=== PATIENT | male | born 1950 | race Caucasian/White ===

== ENCOUNTER → 2021-11-25 | Outpatient (CLI) | payer OTHER ==
[2021-11-25 14:08] VITALS: BP 147/87; PULSE 71; RESP 18; TEMP 98.2
--- NOTE | 2021-11-25 15:27 | P.PAINPG ---
PQRS Measure Charge Sheet Comment: HISTORY OF PRESENT ILLNESS: 71 yr old female as a referral from the [facility] in [place] presents today w severe and chronic neck pain secondary to DDD and facet arthropathy for evaluation. Pt states her pain level is currently at /10 in intensity, constant, tight/sore in character, localized in the base of his neck w radiation Pain is provoked with overhead reaching and lifting. Pain is alleviated with PT in May 2021 for 6 weeks, acupuncture at the [facility], massage therapy semi monthly, chiropractic treatments monthly, heating pad use w massager, medications (Tylenol, Baclofen), sitting and rest. PMH: OA, Prostate CA, HTN, Hyperlipidemia, GERD, Vitamin D Deficiency PSH: L Reverse Shoulder Replacement SH: No tobacco use, Occasional ETOH use, No illicit drug use. service history. Retired. FH: Non contributory All: See list Meds: See list REVIEW OF ORGAN SYSTEMS: CONSTITUTIONAL: No fevers or chills. No recent weight loss. NEUROLOGICAL: + numbness and tingling along the distal extremities. No seizure disorders or headaches. MUSCULOSKELETAL: + pain PSYCHIATRIC: Denies current depression or suicidal thoughts. Physical Examinations : Constitutional : Cooperative , not in acute distress . Neurologic : Cranial nerve II to XII intact. No focal neurological deficits. Psychiatric : alert & oriented x 3. Matching mood & appropriate affect. Judgment & insight intact. Musculoskeletal : Cervical Spine Motor strength in the deltoid and biceps: Normal right side. Normal Left side Motor strength biceps and the wrist extensors: Normal right side . Normal left side Motor strength in the triceps muscle: Normal right side. Normal left side Deep tendon reflexes: Normal at the biceps. Normal at Brachioradialis. Normal at triceps Vertebral body tenderness to deep palpation over C6, C7 Cervical facet loading test: positive bilaterally over C6-C7, C7-T1 Spurling test: positive bilaterally over BL C6-C7 Neck distraction test: positive bilaterally Bella sign: positive bilaterally Lumbar spine Motor strength lower extremities ,thigh and legs 5/5 Right side , 5/5 Left side Deep tendon reflexes : Normal Knee Jerk. Normal Ankle Jerk Vertebral body tenderness over Lumbar facet Loading Test: positive Right / positive Left Range of motion of the lumbar spine Flexion 30 degrees, extension 10 degrees Straight Leg Raise test: Left/ Right positive at degree Rosi test: positive right / positive left. Severe tenderness over the Sacroiliac joint on the Right / Left sides Gaenslen test: positive bilaterally Seated flexion test: positive bilaterally. Sacral spine : Severe tenderness over the Sacroiliac joint: right side / left side Range of motion: Flexion of the lumbar spine <60 degrees Range of motion: Extension of the lumbar spine <20 degrees Gaenslen's Test positive Raphael's Test positive Rosi test: positive right side / left side Thigh Thrust Test Sacral Thrust Test Imaging: Cervical x-ray from 10/08/21 reviewed Assessment/ Plan : Cervical DDD Recommendation of MRI without contrast of the cervical spine re: M50.30 May return to this clinic within 2-4 weeks for a reevaluation, review of imaging results, and to explore further treatment options. Risks, benefits of procedure discussed and patient verbalized understanding. Denies aspirin or anti- coagulant use or medical history of diabetes. Protocol for discontinuation/ continuation of medications trudy procedure discussed. All questions answered. I have spent greater than 30 minutes on patient care today. Dr Christianson was available by phone for the evaluation of this patient. The time was used to review the medical records including relevant urine studies and Prescription history (MAPs), review of the available imaging, evaluation and examination of the patient, coordination of care with the medical staff and if applicable referring physicians, as well as creation of the medical record Controlled Substance Measures - Controlled Substance Measures Is patient prescribed a controlled substance at discharge?: No
== END ==
LOC: PNWHC3 12:41
PROVIDERS: ATTEND Specialist
DX: M50.30 Other cervical disc degeneration, unspecified cervical region (principal); M19.90 Unspecified osteoarthritis, unspecified site; I10 Essential (primary) hypertension; E78.5 Hyperlipidemia, unspecified; K21.9 Gastro-esophageal reflux disease without esophagitis; Z79.899 Other long term (current) drug therapy
CPT/HCPCS: 99202

== ENCOUNTER → 2022-01-18 | Outpatient (CLI) | payer OTHER ==
[2022-01-18 15:20] VITALS: BP 168/91; PULSE 88; RESP 18; TEMP 98.1
--- NOTE | 2022-01-18 15:43 | P.PAINPG ---
PQRS Measure Charge Sheet Comment: A 71 yr old male with a history of severe and chronic neck pain secondary to cervical degenerative disc diseases and spondylosis with facet arthropathy without myelopathy presents today for neck pain evaluation. Pain level is currently at 4/10 in intensity, constant, localized in lower cervical spine, achy in character w shooting towards BL shoulders. Pain is provoked by staying in one position for periods of 1 hr or more. Pain is alleviated with PT within the last 8 mo, home exercise regimen, massages as needed this past summer, chiropractic treatments monthly as needed, accupuncture through the [facility], heating pad use, meds (Neurontin, Ibuprofen), repositioning and rest. Interventional pain procedures completed include DENIES Patient is currently on Neurontin, Ibuprofen. Patient denies any side effects of the medication(s), denies excessive drowsiness or sleepiness, denies suicidal ideation and reports that the current pain medication is helping to control the pain and improve activities of daily living. Patient denies any motor or sensory deficits. Patient denies any fever or night sweats, denies any change in the bowel movements or urination. Physical Examination: -Constitutional: Cooperative. Not in acute distress . - Neurologic: Cranial nerve II to XII intact. No focal neurological deficits. - Psychatric: Alert & oriented x 3. Matching mood & appropriate affect. Judgment and insight intact. - Musculoskeletal: Cervical spine: Muscle bulk/ tone/ strength in the bilateral upper extremities normal Vertebral body tenderness to palpation over C7 Spurling test positive Distraction test positive Facet loading test positive Thoracic spine Muscle bulk / tone/ strength in the bilateral paraspinal muscles normal Vertebral body tender to palpation over Facet loading test positive Lumbar spine: Motor bulk/ tone/ strength lower extremities , thigh and legs : 5/5 Deep tendon reflexes : Normal Knee Jerk. Normal Ankle Jerk . Vertebral body tenderness to palpation over Lumbar Facet Loading Test positive Straight Leg Raise: positive at 30 degrees right side/ left side Gaenslen's Test positive Sacral spine : Severe tenderness over the Sacroiliac joint: right side / left side Range of motion: Flexion of the lumbar spine <60 degrees Range of motion: Extension of the lumbar spine <20 degrees Gaenslen's Test positive Raphael's Test positive Rosi test: positive right side / left side Thigh Thrust Test Sacral Thrust Test Imaging: MRI without contrast of the cervical spine from 01/11/22 reviewed Assessment and plan: Chronic neck pain secondary to cervical degenerative disc disease , spondylosis with facet arthropathy without myelopathy Recommendation of PERNELL C7-T1. May need a series, up to 3 within a 6 mo period, for optimal pain relief. Risks, benefits of procedure discussed and pt verbalized understanding. Admits to anticoagulant use or medical history of diabetes. Protocol for discontinuation/ continuation of medications trudy procedure discussed. All patient questions answered I have spent less than 30 minutes on patient care today. Dr Christianson was av ailable by phone for the evaluation of this patient. The time was used to review the medical records including relevant urine studies and Prescription history (MAPs), review of the available imaging, evaluation and examination of the patient, coordination of care with the medical staff and if applicable referring physicians, as well as creation of the medical record PQRS Narrative: Hx Alcohol Use (MH) Yes: RARELY Home Medications: Ambulatory Orders Baclofen 10 mg PO 11/25/21 Cholecalciferol [Vitamin D3 (25 Mcg = 1000 Iu)] 1,000 unit PO 11/25/21 Gabapentin TID 11/25/21 Ibuprofen 800 mg PO Q12HR PRN 11/25/21 Losartan Potassium 100 mg PO DAILY 11/25/21 Multivitamin [Multivitamins Adult Gummies] 1 each PO DAILY 11/25/21 Omeprazole 20 mg PO DAILY 11/25/21 Saw [place] 500 mg PO DAILY 11/25/21 Simvastatin 40 mg PO DAILY 11/25/21 Terazosin HCl 10 mg PO DAILY 11/25/21 flaxseed oiL [[place]-3 Flaxseed Oil] 1,000 mg PO DAILY 11/25/21 hydroCHLOROthiazide [Hydrodiuril] 12.5 mg PO DAILY 11/25/21 Controlled Substance Measures - Controlled Substance Measures Is patient prescribed a controlled substance at discharge?: No
== END ==
LOC: PNWHC3 14:00
PROVIDERS: ATTEND Specialist
DX: M47.812 Spondylosis without myelopathy or radiculopathy, cervical region (principal); M50.30 Other cervical disc degeneration, unspecified cervical region; G89.29 Other chronic pain
CPT/HCPCS: 99211

== ENCOUNTER 2022-04-01 11:41 | Day surgery (SDC) | payer OTHER ==
[2022-03-16 11:25] VITALS: BMI 57.2
[~2022-04-01 11:41] MED LIST: LACTATED RINGERS 1,000 ML IV SCH
--- NOTE | 2022-04-01 13:19 | P.PN ---
Progress Note - Text Progress Note Date: 04/01/22 The patient was seen in the preop holding area. He is scheduled for cervical epidural steroid injection. His pain is mostly in the neck area radiating down the spine to the upper thoracic area with more pain in the arms and numbness or tingling. He has been taking ibuprofen 600 mg 3 times a day last time was at 10 PM last night and also he takes fish oil. Given the patient's age I prefer that he holds the ibuprofen for 24 hours before the procedure and that's why I'm going to reschedule this procedure for time. The issue was explained to the patient and he was agreeable to our plan.
== END 2022-04-01 13:15 | disposition home or self-care (01) ==
LOC: ORPAIN 11:41
PROVIDERS: ATTEND Anesthesiology
DX: M47.812 Spondylosis without myelopathy or radiculopathy, cervical region (principal); M54.2 Cervicalgia; Z53.09 Procedure and treatment not carried out because of other contraindication

== ENCOUNTER 2022-04-29 09:41 | Day surgery (SDC) | payer OTHER ==
[2022-04-29] MEDS ORDERED: LIDOCAINE 1% (10MG/ML) FOR IV START INTRADERMA PRN (09:51)
[2022-04-29] MEDS ORDERED: LACTATED RINGERS 1,000 ML IV SCH (09:51)
[2022-04-29 10:02] VITALS: TEMP 98.1
[2022-04-29] MEDS ORDERED: DEXAMETHASONE SOD PHOSPHATE 10 MG/ML 1 ML VIAL ONE (10:27)
[2022-04-29] MEDS ORDERED: IOPAMIDOL M200 10 ML VIAL ONE (10:27)
--- NOTE | 2022-04-29 10:40 | P.PCN ---
Date of Procedure: 04/29/22 Procedure(s) Performed: . PROCEDURE 1. Cervical epidural steroid injection under fluoroscopic guidance, C7-T1 (fluoroscopy images available in the radiology department ) 2. Cervical epidurogram. PREOPERATIVE DIAGNOSIS: 1- Cervical Degenerative Disc Diseases 2-cervical spondylosis with cervical Facet arthropathy without myelopathy.4-cervical spinal stenosis POSTOPERATIVE DIAGNOSIS: : 1- Cervical Degenerative Disc Diseases , 2-cervical spondylosis with cervical Facet arthropathy without myelopathy. 4-cervical spinal stenosis ANESTHESIA: Lidocaine 1% 3 mL only. EBL 0 PROCEDURE INDICATION: The patient with neck pain and radiculitis unresponsive to conservative treatment consents for procedure. PROCEDURE DESCRIPTION / TECHNIQUE: The patient was seen and identified in the preoperative area. Risks, benefits, complications, including but not limited to infections ,bleeding , allergic reactions to the medications ,and not complete pain releife, and alternatives were discussed with the patient, the patient agreed to proceed with the procedure and signed the consent. Patient was taken to the OR and time out was completed. The patient was placed in the prone position on the procedure table. A pillow was placed under the patients chest to increase the cervical interlaminar space. The cervical area was prepped and draped in the usual sterile fashion. Vital signs were closely monitored during the procedure. Using anterior-posterior fluoroscopy, the C7-T1 interlaminar space was identified and the skin over this site was marked and then infiltrated with 1% lidocaine subcutaneously. Subsequently, a 20-gauge 3-1/2-inch Tuohy epidural needle was inserted and advanced toward the epidural space by means of the ``hanging-drop technique and guided by AP and lateral fluoroscopy. The correct needle position in the epidural space was verified with the injection of 2 mL of the water soluble contrast dye [id number]-300 and observing an excellent epidurogram with the epidural spread of the dye, after negative aspiration for blood and CSF and in the absence of paresthesias. then, mixture containing 20 mg Dexamethasone and 2 ml of preservative-free normal saline injected and a washout of epidurogram was seen. Needle was withdrawn intact, skin was cleansed, and bandages were applied. Complications= none. Disposition= patient was placed in supine position and transferred to the recovery room area in stable condition and there was no evidence of upper or lower extremity motor or sensory deficit after the procedure patient was discharged from recovery room after discharge criteria met and home discharge instructions was given by the staff and patient will follow with the pain clinic in 2-4 weeks
--- NOTE | 2022-04-29 10:49 | FL ---
EXAMINATION TYPE: FL guided pain mgmt statistic DATE OF EXAM: 04/29/2022 CLINICAL HISTORY: Neck pain. TECHNIQUE: Fluoroscopy. COMPARISON: None. FINDINGS: Fluoroscopic guidance was provided during procedure performed by Dr. Spring. A total of 10 seconds of fluoroscopic time was utilized during the procedure and 1 spot image is acquired. Sing le image acquired shows contrast injection with localization at C7 level. IMPRESSION: As Above.
[2022-04-29 11:16] VITALS: BP 146/84; PULSE 85; RESP 16
== END 2022-04-29 11:18 | disposition home or self-care (01) ==
LOC: ORPAIN 09:41
PROVIDERS: ATTEND Specialist
DX: M50.13 Cervical disc disorder with radiculopathy, cervicothoracic region (principal); M47.22 Other spondylosis with radiculopathy, cervical region; M48.02 Spinal stenosis, cervical region
CPT/HCPCS: 62321; J1100; Q9966

== ENCOUNTER → 2022-05-17 | Outpatient (CLI) | payer OTHER ==
[2022-05-17 13:08] VITALS: BP 159/91; PULSE 81; RESP 18; TEMP 97.9
--- NOTE | 2022-05-17 14:33 | P.PAINPG ---
PQRS Measure Charge Sheet History and Exam Findings: All other causes of pain ruled out Comment: A 71 yr old female with a history of severe and chronic neck pain secondary to cervical DDD and spondylosis with facet arthropathy without myelopathy presents today for evaluation s/p PERNELL C7-T1. Pt states he experienced 100 % pain relief x 1 wk s/p procedure. Pain level is provoked at 6 /10 in intensity, constant, localized in the cervical spine, achy/ sharp/ in character w shooting towards the BL shoulders. Pain is provoked by lifting and too much neck activity. Pain is alleviated with massage therapy monthly currently for last 2 yrs, chiropractic treatments semi monthly for 1-2 yrs currently, use of a cane for a mbulatory assistance, meds (Neurontin, Tyl, Ibu, Baclofen), alternating heat & ice, repositioning and rest. Interventional pain procedures completed include PERNELL C7-T1 x1 Patient is currently on Tyl, Ibu, Baclofen, Neurontin Patient denies any side effects of the medication(s), denies excessive drowsiness or sleepiness, denies suicidal ideation and reports that the current pain medication is helping to control the pain and improve activities of daily living. Patient denies any motor or sensory deficits. Patient denies any fever or night sweats, denies any change in the bowel movements or urination. Physical Examination: -Constitutional: Cooperative. Not in acute distress . - Neurologic: Cranial nerve II to XII intact. No focal neurological deficits. - Psychatric: Alert & oriented x 3. Matching mood & appropriate affect. Judgment and insight intact. - Musculoskeletal: Cervical spine: Muscle bulk/ tone/ strength in the bilateral upper extremities normal Vertebral body tenderness to palpation over Spurling test positive Distraction test positive Facet loading test positive Thoracic spine Muscle bulk / tone/ strength in the bilateral paraspinal muscles normal Vertebral body tender to palpation over T1, T2, T3 Facet loading test positive Lumbar spine: Motor bulk/ tone/ strength lower extremities , thigh and legs : 5/5 Deep tendon reflexes : Normal Knee Jerk. Normal Ankle Jerk . Vertebral body tenderness to palpation over Lumbar Facet Loading Test positive Straight Leg Raise: positive at 30 degrees right side/ left side Gaenslen's Test positive Sacral spine : Severe tenderness over the Sacroiliac joint: right side / left side Range of motion: Flexion of the lumbar spine <60 degrees Range of motion: Extension of the lumbar spine <20 degrees Gaenslen's Test positive Rosi test: positive right side / left side Thigh Thrust Test Sacral Thrust Test Assessment and plan: Chronic neck pain secondary to cervical DDD, spondylosis with facet arthropathy without myelopathy Recommendation of Thoracic x- ray re: M51.34 May need additional testing if indicated. May follow up within 4 wks for a re evaluation. All questions answered I have spent less than 30 minutes on patient care today. Dr Christianson was available by phone for the evaluation of this patient. The time was used to review the medical records including relevant urine studies and Prescription history (MAPs), review of the available imaging, evaluation and examination of the patient, coordination of care with the medical staff and if applicable referring physicians, as well as creation of the medical record - Pain Location Bilateral Lower Neck Non-Pharmacological Interventions: Chiropractic Treatment, Heat, Ice, Massage Pharmacological Interventions: Epidural, PRN Medication, Scheduled Medication PQRS Narrative: Hx Alcohol Use (MH) Yes: RARELY Home Medications: Ambulatory Orders Baclofen 10 mg PO BID 11/25/21 Cholecalciferol [Vitamin D3 (25 Mcg = 1000 Iu)] 1,000 unit PO DAILY 11/25/21 Gabapentin 600 mg PO TID 11/25/21 Ibuprofen 800 mg PO Q12HR PRN 11/25/21 Multivitamin [Multivitamins Adult Gummies] 1 each PO DAILY 11/25/21 Omeprazole 20 mg PO DAILY 11/25/21 Saw [place] 500 mg PO DAILY 11/25/21 Simvastatin 40 mg PO HS 11/25/21 Terazosin HCl 10 mg PO HS 11/25/21 flaxseed oiL [[place]-3 Flaxseed Oil] 1,000 mg PO DAILY 11/25/21 Fluticasone Nasal [place] [Flonase Nasal [place]] 2 spray EA NOSTRIL DAILY 03/16/22 Losartan/Hydrochlorothiazide [Losartan-Hctz 100-12.5 mg Tab] 1 tab PO DAILY 03/16/22 Zinc Citrate [Zinc] 22 mg PO DAILY 03/16/22 Cetirizine HCl [Zyrtec] 1 tab PO DAILY 04/27/22 Controlled Substance Measures - Controlled Substance Measures Is patient prescribed a controlled substance at discharge?: No
== END ==
LOC: PNWHC3 12:47
PROVIDERS: ATTEND Specialist
DX: M47.812 Spondylosis without myelopathy or radiculopathy, cervical region (principal); M50.30 Other cervical disc degeneration, unspecified cervical region; G89.29 Other chronic pain
CPT/HCPCS: 99211

== ENCOUNTER → 2022-05-17 | Outpatient (CLI) | payer OTHER ==
--- NOTE | 2022-05-17 14:11 | XR ---
EXAMINATION TYPE: XR thoracic spine 2V DATE OF EXAM: 05/17/2022 CLINICAL HISTORY: Mid back pain. TECHNIQUE: Frontal, lateral, and swimmer's view of thoracic spine are obtained. COMPARISON: None. FINDINGS: Thoracic spine show S shaped scoliotic curvature without evidence of acute fracture or disl ocation. Lateral images show some straightening of the thoracic spine. Vertebral body heights and di sc space heights are preserved. There is mild to moderate multilevel anterior and lateral spurring. V isualized ribs are intact bilaterally. IMPRESSION: As above.
== END | disposition home or self-care (01) ==
LOC: RADXRMAIN 13:47
PROVIDERS: ATTEND Physician Assistant Medical
DX: M51.34 Other intervertebral disc degeneration, thoracic region (principal)
CPT/HCPCS: 72070

== ENCOUNTER → 2022-11-03 | Outpatient (CLI) | payer OTHER ==
[2022-11-03 10:24] VITALS: BP 127/85; PULSE 58; RESP 14; TEMP 98
--- NOTE | 2022-11-03 15:30 | P.PAINPG ---
PQRS Measure Charge Sheet Comment: A 71 yr old male with a history of severe and chronic mid back pain secondary to thoracic DDD and spondylosis with facet arthropathy without myelopathy presents today for mid back pain. Pain level is provoked at 6/10 in intensity, constant, localized in the thoracic spine, achy in character w shooting towards the ribs. Pain is provoked by bending, lifting. Pain is alleviated with massage therapy every 2-3 wks, chiropractic treatments semi monthly, heat, ice, medications (Ibu, Neurontin, Baclofen), reclining and rest. Oswestry axial pain score of 28. Interventional pain procedures completed include PERNELL C7-T1 Patient is currently on Ibu, Baclofen, Neurontin Patient denies any side effects of the medication(s), denies excessive drowsiness or sleepiness, denies suicidal ideation and reports that the current pain medication is helping to control the pain and improve activities of daily living. Patient denies any motor or sensory deficits. Patient denies any fever or night sweats, denies any change in the bowel movements or urination. Physical Examination: -Constitutional: Cooperative. Not in acute distress . - Neurologic: Cranial nerve II to XII intact. No focal neurological deficits. - Psychatric: Alert & oriented x 3. Matching mood & appropriate affect. Judgment and insight intact. - Musculoskeletal: Cervical spine: Muscle bulk/ tone/ strength in the bilateral upper extremities normal Vertebral body tenderness to palpation over Spurling test positive Distraction test positive Facet loading test positive Thoracic spine Muscle bulk / tone/ strength in the bilateral paraspinal muscles normal Vertebral body tender to palpation over T11 Facet loading test positive Lumbar spine: Motor bulk/ tone/ strength lower extremities , thigh and legs : 5/5 Deep tendon reflexes : Normal Knee Jerk. Normal Ankle Jerk . Vertebral body tenderness to palpation over Lumbar Facet Loading Test positive Straight Leg Raise: positive at 30 degrees right side/ left side Gaenslen's Test positive Sacral spine : Severe tenderness over the Sacroiliac joint: right side / left side Range of motion: Flexion of the lumbar spine <60 degrees Range of motion: Extension of the lumbar spine <20 degrees Gaenslen's Test positive Rosi test: positive right side / left side Thigh Thrust Test Sacral Thrust Test Imaging: Thoracic spine MRI non contrast from 10/25/22 reviewed Assessment and plan: Chronic mid back pain secondary to thoracic disc bulges, DDD, spondylosis with facet arthropathy without myelopathy Recommendation of TESI T11-T12 #1. May need a series of injections for optimal pain relief. Risks, benefits of procedure discussed and pt verbalized understanding. Protocol for discontinuation/ continuation of medications surrounding procedure discussed. All patient questions answered I have spent less than 30 minutes on patient care today. Dr Christianson was available by phone for the evaluation of this patient. The time was used to review the medical records including relevant urine studies and Prescription history (MAPs), review of the available imaging, evaluation and examination of the patient, coordination of care with the medical staff and if applicable referring physicians, as well as creation of the medical record PQRS Narrative: Hx Alcohol Use (MH) Yes: RARELY Home Medications: Ambulatory Orders Baclofen 10 mg PO BID 11/25/21 Cholecalciferol [Vitamin D3 (25 Mcg = 1000 Iu)] 1,000 unit PO DAILY 11/25/21 Gabapentin 600 mg PO TID 11/25/21 Ibuprofen 800 mg PO Q12HR PRN 11/25/21 Multivitamin [Multivitamins Adult Gummies] 1 each PO DAILY 11/25/21 Omeprazole 20 mg PO DAILY 11/25/21 Saw [place] 500 mg PO DAILY 11/25/21 Simvastatin 40 mg PO HS 11/25/21 Terazosin HCl 10 mg PO HS 11/25/21 flaxseed oiL [[place]-3 Flaxseed Oil] 1,000 mg PO DAILY 11/25/21 Fluticasone Nasal [place] [Flonase Nasal [place]] 2 spray EA NOSTRIL DAILY 03/16/22 Losartan/Hydrochlorothiazide [Losartan-Hctz 100-12.5 mg Tab] 1 tab PO DAILY 03/16/22 Zinc Citrate [Zinc] 22 mg PO DAILY 03/16/22 Cetirizine HCl [Zyrtec] 1 tab PO DAILY 04/27/22 Controlled Substance Measures - Controlled Substance Measures Is patient prescribed a controlled substance at discharge?: No
== END ==
LOC: PNWHC3 09:58
PROVIDERS: ATTEND Specialist
DX: M51.34 Other intervertebral disc degeneration, thoracic region (principal); M47.814 Spondylosis without myelopathy or radiculopathy, thoracic region; G89.29 Other chronic pain
CPT/HCPCS: 99211

== ENCOUNTER 2022-11-16 09:45 | Day surgery (SDC) | payer OTHER ==
[2022-11-11 10:20] VITALS: BMI 57.2
[2022-11-16 10:12] VITALS: TEMP 98.3
[2022-11-16] MEDS ORDERED: IOPAMIDOL M200 10 ML VIAL ONE (10:19)
[2022-11-16] MEDS ORDERED: methylPREDNISolone ACETATE 80 MG/ML 1 ML VIAL ONE (10:19)
--- NOTE | 2022-11-16 10:26 | P.PCN ---
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 POSTOPERATIVE DIAGNOSIS: Same as preop diagnosis PROCEDURE 1. Thoracic epidural steroid injection under fluoroscopic guidance at the T11-12 level. (Fluoroscopy imaging was available in radiology department) 2. Thoracic epidurogram. ANESTHESIA: Lidocaine 1% 3 and then only. EBL: Minimal PROCEDURE INDICATION: The patient with mid and low back pain and radiculitis symptoms unresponsive to conservative treatment. Fluoroscopy was used to optimize visualization of the needle placement and to maximize safety. PROCEDURE DESCRIPTION / TECHNIQUE: The patient was seen and identified in the preoperative area. Risks, benefits, complications including but not limited to infections ,bleeding ,allergic reaction to the medications ,nerve damage and not complete pain releife , and alternatives were discussed with the patient. The patient agreed to proceed with the procedure and signed the consent, and vital signs were stable. Patient was taken to the OR and time out was completed. The patient was placed in the prone position on procedure table and a pillow was placed under the abdomen to reduce lumbar lordosis. The lumbosacral area was prepped and draped in the usual sterile fashion.ere closely monitored during the procedure. Vital signs was monitered during the entire procedure. Using anterior-posterior fluoroscopy, the T11-12 interlaminar space was identified and the skin over this site was marked and then infiltrated with 1% lidocaine subcutaneously. Subsequently, a 20-gauge Tuohy epidural needle was inserted and advanced toward the epidural space using the ``Loss of resistance technique and guided by AP and lateral fluoroscopy. The correct needle position in the epidural space was verified with the injection of 2 mL of the water soluble contrast dye Isovue 200 contrast and observing an excellent epidurogram with the epidural spread of the dye, after negative aspiration for blood and CSF and in the absence of paresthesias. Again after negative aspiration, a 6 ml mixture containing 60 mg of Depo-medrol ( Preservetive Free ), and 2 ml of preservative free Normal Saline, and 2 ml of preservative free lidocaine 1% solution was injected and a washout of epidurogram was seen. Needle was withdrawn intact, skin was cleansed, and bandages were applied. COMPLICATIONS: None DISPOSITION / PLANS: The patient was placed in a supine position and transferred to the recovery area in a stable condition for observation. There was no evidence of lower extremity motor or sensory deficit after the procedure. Patient was discharged from the recovery room after meeting discharge criteria. Home discharge instructions were given to the patient by the staff. The patient was reexamined prior to discharge. The patient will schedule a follow up in the clinic in 2-4 weeks.
--- NOTE | 2022-11-16 10:41 | FL ---
Intraoperative/procedural fluoroscopic services were provided for thoracic epidural injection. Total fluoroscopy time is 4.1 seconds with a total of 1 submitted image to PACS. Total DAP [id number]. Please see the operative note for further details.
[2022-11-16 10:45] VITALS: BP 138/82; PULSE 75; RESP 18
== END 2022-11-16 10:45 | disposition home or self-care (01) ==
LOC: ORPAIN 09:45
PROVIDERS: ATTEND Specialist
DX: M51.14 Intervertebral disc disorders with radiculopathy, thoracic region (principal); M47.24 Other spondylosis with radiculopathy, thoracic region
CPT/HCPCS: 62321; J1040; Q9966

== ENCOUNTER 2022-11-24 17:36 | Observation (INO) | payer OTHER, MEDICARE ==
--- NOTE | 2022-11-24 17:53 | ED ---
General Adult HPI - General Stated complaint: SOB,PE Time Seen by Provider: 11/24/22 17:36 Source: patient, RN notes reviewed, old records reviewed - History of Present Illness Initial comments: This is a 72-year-old male presents emergency department coming from [facility]. Patient was diagnosed with a pulmonary embolism. Patient is on heparin. Patient states the symptoms started about a day ago and were getting a little bit worse we decided to go to the emergency department. Patient had a computed tomography scan that indicated a right-sided pulmonary was him and he was placed on heparin. Patient denies any chest pain palpitations or fever chills or cough. Patient denies any lightheadedness or dizziness. - Related Data Home Medications Medication Instructions Recorded Confirmed Baclofen 10 mg PO BID 11/25/21 11/24/22 Cholecalciferol [Vitamin D3 (25 50 unit PO AC-BRKFST 11/25/21 11/24/22 Mcg = 1000 Iu)] Gabapentin 600 mg PO TID 11/25/21 11/24/22 Ibuprofen 800 mg PO Q8H PRN 11/25/21 11/24/22 Multivitamin [Multivitamins Adult 1 each PO DAILY 11/25/21 11/24/22 Gummies] Omeprazole 20 mg PO AC-BRKFST 11/25/21 11/24/22 Simvastatin 40 mg PO HS 11/25/21 11/24/22 Terazosin HCl 10 mg PO HS 11/25/21 11/24/22 flaxseed oiL [[place]-3 Flaxseed Oil] 1,000 mg PO DAILY 11/25/21 11/24/22 Losartan/Hydrochlorothiazide 1 tab PO DAILY 03/16/22 11/24/22 [Losartan-Hctz 100-12.5 mg Tab] Ipratropium [place] 0.06%Nasal 2 spray EA NOSTRIL DAILY PRN 11/24/22 11/24/22 [Atrovent Nasal 0.06%] Lidocaine 5% Patch [Lidoderm] 1 patch TOPICAL DAILY PRN 11/24/22 11/24/22 Zinc Gluconate [Zinc] 50 mg PO DAILY 11/24/22 11/24/22 Allergies Allergy/AdvReac Type Severity Reaction Status Date / Time No Known Allergies Allergy Verified 11/24/22 18:17 Review of Systems ROS Statement: Those systems with pertinent positive or pertinent negative responses have been documented in the HPI. ROS Other: All systems not noted in ROS Statement are negative. Past Medical History Past Medical History: Cancer, Fibromyalgia, Hyperlipidemia, Hypertension, Prostate Disorder, Sleep Apnea/CPAP/BIPAP Additional Past Medical History / Comment(s): hx hiatal hernia, prostate cancer, frequent urination, degnerative disks, History of Any Multi-Drug Resistant Organisms: MRSA Date of last positivie culture/infection: 2014 MDRO Source:: rt hand Past Surgical History: Joint Replacement, Tonsillectomy Additional Past Surgical History / Comment(s): left shoulder replacement, sinus surgery, bryant cataracts, PAIN CLINIC PROCEDURES, COLONOSCOPY Past Anesthesia/Blood Transfusion Reactions: No Reported Reaction Smoking Status: Former smoker - Past Family History Mother Family Medical History: No Reported History General Exam - General Exam Comments Initial Comments: GENERAL: Patient is well-developed and well-nourished. Patient is nontoxic and well- hydrated and is in mild distress. ENT: Neck is soft and supple. No significant lymphadenopathy is noted. Oropharynx is clear. Moist mucous membranes. Neck has full range of motion without eliciting any pain. EYES: The sclera were anicteric and conjunctiva were pink and moist. Extraocular movements were intact and pupils were equal round and reactive to light. Eyelids were unremarkable. PULMONARY: Unlabored respirations. Good breath sounds bilaterally. No audible rales rhonchi or wheezing was noted. CARDIOVASCULAR: There is a regular rate and rhythm without any murmurs gallops or rubs. ABDOMEN: Soft and nontender with normal bowel sounds. SKIN: Skin is clear with no lesions or rashes and otherwise unremarkable. NEUROLOGIC: Patient is alert and oriented x3. Cranial nerves II through XII are grossly intact. Motor and sensory are also intact. Normal speech, volume and content. Symmetrical smile. MUSCULOSKELETAL: Normal extremities with adequate strength and full range of motion. LYMPHATICS: No significant lymphadenopathy is noted PSYCHIATRIC: Normal psychiatric evaluation. Course Vital Signs 11/24/22 11/24/22 17:42 17:49 Temperature 98.2 F Pulse Rate 110 H Respiratory 20 18 Rate Blood Pressure 121/88 O2 Sat by Pulse 96 Oximetry Medical Decision Making - Medical Decision Making EKG was and to room myself shows a sinus tachycardia at 100 bpm WV interval 272 QRS is 170 QT interval 06/18/1969 QTC is 394 per patient's EKG shows no ST segment elevation or depression. Was pt. sent in by a medical professional or institution (GENARO Adame, COSTUME DESIGN TEACHER, urgent care, hospital, or care home...) When possible be specific @ -Patient was transferred to us by [facility] Did you speak to anyone other than the patient for history (EMS, parent, family, police, friend...)? What history was obtained from this source @ -ER physician gave report about this patient Did you review nursing and triage notes (agree or disagree)? Why? @ -I reviewed and agree with nursing and triage notes Were old charts reviewed (outside hosp., previous admission, EMS record, old EKG, old radiological studies, urgent care reports/EKG's, care home records)? Report findings @ -I reviewed the CAT scan results the chart of this patient and lab work from the other facility Differential Diagnosis (chest pain, altered mental status, abdominal pain women, abdominal pain men, vaginal bleeding, weakness, fever, dyspnea, syncope, headache, dizziness, GI bleed, back pain, seizure, CVA, palpatations, mental health, musculoskeletal)? @ -Differential Dyspnea: Coronary syndrome, arrhythmia, tamponade, asthma, COPD, pulmonary embolism, pneumonia, pneumothorax, pulmonary effusion, anaphylaxis, diabetic ketoacidosis, flailed chest, pulmonary contusion, diaphragmatic rupture, anemia, neuromuscular, this is not meant to be an all-inclusive list. EKG interpreted y me (3pts min.). @ -As above X-rays interpreted by me (1pt min.). @ -None done CT interpreted by me (1pt min.). @ -None done U/S interpreted by me (1pt. min.). @ -None done What testing was considered but not performed or refused? (CT, X-rays, U/S, labs)? Why? @ -None What meds were considered but not given or refused? Why? @ -None Did you discuss the management of the patient with other professionals (izabella jonesfessionalgabriele i.e. GENARO Adame, COSTUME DESIGN TEACHER, lab, RT, psych nurse, social work specialist, offset plate maker, teacher, business banking officer, showcase trimmer)? Give summary @ I spoke with some physicians and he agreed to admit the patient Was smoking cessation discussed for >3mins.? @ -No Was critical care preformed (if so, how long)? @ -No Were there social determinants of health that impacted care today? How? (Homelessness, low income, unemployed, alcoholism, drug addiction, transportation, low edu. Level, literacy, decrease access to med. care, senior care, rehab)? @ -No Was there de-escalation of care discussed even if they declined (Discuss DNR or withdrawal of care, Hospice)? DNR status @ -No What co-morbidities impacted this encounter? (DM, HTN, Smoking, COPD, CAD, Cancer, CVA, ARF, Chemo, Hep., AIDS, mental health diagnosis, sleep apnea, morb id obesity)? @ -None Was patient admitted / discharged? Hospital course, mention meds given and route, prescriptions, significant lab abnormalities, going to OR and other pertinent info. @ -Patient will be started back on heparin patient will be admitted and cardiology be consulted Undiagnosed new problem with uncertain prognosis? @ -No Drug Therapy requiring intensive monitoring for toxicity (Heparin, Nitro, Insulin, Cardizem)? @ -No Were any procedures done? @ -No Diagnosis/symptom? @ -Pulmonary embolism Acute, or Chronic, or Acute on Chronic? @ -Acute Uncomplicated (without systemic symptoms) or Complicated (systemic symptoms)? @ -Complicated Side effects of treatment? @ -No Exacerbation, Progression, or Severe Exacerbation? @ -No Poses a threat to life or bodily function? How? (Chest pain, [place], AL, pneumonia, PE, COPD, DKA, ARF, appy, cholecystitis, CVA, Diverticulitis, Homicidal, Suicidal, threat to staff... and all critical care pts) @ -Yes this can lead to hypoxia and end organ dysfunction Disposition Clinical Impression: Pulmonary embolism Disposition: ADMITTED IP TO THIS [facility] Time of Disposition: 17:52
[2022-11-24] MEDS: HEPARIN SOD,PORK IN 0.45% NACL 25,000 UNIT in 0.45% NACL 1 250ML.BAG IV SCH (18:25)
[2022-11-24] MEDS ORDERED: NITROGLYCERIN SL TABS 0.4 MG TAB SUBLINGUAL PRN (18:41)
[2022-11-24] MEDS ORDERED: LIDOCAINE 5% PATCH TOPICAL PRN (18:49)
[2022-11-24] MEDS ORDERED: IPRATROPIUM BROMIDE 0.06% NASAL SPRAY (15 ML) EA NOSTRIL PRN (18:49)
[2022-11-24] MEDS ORDERED: HEPARIN SODIUM 1,000 UN/ML (10ML VL) IV PRN (18:53)
--- NOTE | 2022-11-24 18:59 | P.HPIM ---
History of Present Illness H&P Date: 11/24/22 Patient is a 72-year-old male with a past medical history of hypertension, hyperlipidemia, GERD, BPH, LUISANA and morbid obesity who is a transfer from [facility] for a pulmonary embolism. Patient states that over the past 24 hours he's been having shortness of breath with exertion. CTA chest at the outside hospital showed right-sided pulmonary embolism with no right heart strain. Patient was satting in the low 90s at rest on room air. He was tachycardic. Patient will be admitted for an echocardiogram to rule out right heart strain. Patient will also need a home O2 test prior to discharge. Review of systems: 10 ROS reviewed and are negative except as noted in HPI Physical exam General: [Alert and oriented, well nourished, no acute distress]. Eye: [PERRL, EOMI, normal conjunctiva]. HENT: [Normocephalic, clear tympanic membranes, normal hearing, moist oral mucosa, no scleral icterus, no sinus tenderness]. Neck: [Supple, non-tender, no carotid bruits, no JVD, no lymphadenopathy]. Lungs: [Clear to auscultation and percussion, non-labored respiration]. Heart: [Tachycardic, regular rhythm, no murmur, gallop or edema]. Abdomen: [Soft, non-tender, non-distended, normal bowel sounds, no masses, morbidly obese]. Musculoskeletal: [Normal range of motion and strength, no tenderness or swelling]. Skin: [Skin is warm, dry and pink, no rashes or lesions]. Neurologic: [Awake, alert, and oriented X3, CN II-XII intact]. Psychiatric: [Cooperative, appropriate mood and affect]. Assessment and plan Acute pulmonary embolism Hypertension Hyperlipidemia GERD BPH Morbid obesity We'll resume heparin drip at 2300 units an hour and trend PTT every 6 hours as per pharmacy We'll obtain a echocardiogram If echocardiogram negative for right heart strain will plan to discharge the patient on Xarelto which is more effective in obese patients. Trend troponin Resume all other home medications which include: Baclofen 10 mg by mouth twice a day, gabapentin 600 mg by mouth 3 times a day, losartan 100 mg by mouth daily, hydrochlorothiazide 12.5 mg by mouth daily, PPI, simvastatin 40 mg by mouth at bedtime, terazosin 10 mg by mouth at bedtime We'll also order for CPAP at nighttime CODE STATUS:full code DVT prophylaxis: Heparin drip Discussed with: Patient, ER, rn Anticipated length of stay < than [address]: home Past Medical History Past Medical History: Cancer, Fibromyalgia, Hyperlipidemia, Hypertension, Prostate Disorder, Sleep Apnea/CPAP/BIPAP Additional Past Medical History / Comment(s): hx hiatal hernia, prostate cancer, frequent urination, degnerative disks, History of Any Multi-Drug Resistant Organisms: MRSA Date of last positivie culture/infection: 2014 MDRO Source:: rt hand Past Surgical History: Joint Replacement, Tonsillectomy Additional Past Surgical History / Comment(s): left shoulder replacement, sinus surgery, bryant cataracts, PAIN CLINIC PROCEDURES, COLONOSCOPY Past Anesthesia/Blood Transfusion Reactions: No Reported Reaction Smoking Status: Former smoker - Past Family History Mother Family Medical History: No Reported History Medications and Allergies Home Medications Medication Instructions Recorded Confirmed Type Baclofen 10 mg PO BID 11/25/21 11/24/22 History Cholecalciferol [Vitamin D3 (25 50 unit PO AC-BRKFST 11/25/21 11/24/22 History Mcg = 1000 Iu)] Gabapentin 600 mg PO TID 11/25/21 11/24/22 History Ibuprofen 800 mg PO Q8H PRN 11/25/21 11/24/22 History Multivitamin [Multivitamins Adult 1 each PO DAILY 11/25/21 11/24/22 History Gummies] Omeprazole 20 mg PO AC-BRKFST 11/25/21 11/24/22 History Simvastatin 40 mg PO HS 11/25/21 11/24/22 History Terazosin HCl 10 mg PO HS 11/25/21 11/24/22 History flaxseed oiL [[place]-3 Flaxseed Oil] 1,000 mg PO DAILY 11/25/21 11/24/22 History Losartan/Hydrochlorothiazide 1 tab PO DAILY 03/16/22 11/24/22 History [Losartan-Hctz 100-12.5 mg Tab] Ipratropium [place] 0.06%Nasal 2 spray EA NOSTRIL DAILY PRN 11/24/22 11/24/22 History [Atrovent Nasal 0.06%] Lidocaine 5% Patch [Lidoderm] 1 patch TOPICAL DAILY PRN 11/24/22 11/24/22 History Zinc Gluconate [Zinc] 50 mg PO DAILY 11/24/22 11/24/22 History Allergies Allergy/AdvReac Type Severity Reaction Status Date / Time No Known Allergies Allergy Verified 11/24/22 18:17 Physical Exam Osteopathic Statement: *. No significant issues noted on an osteopathic structural exam other than those noted in the History and Physical/Consult. Vitals: Vital Signs Temp Pulse Resp BP Pulse Ox 11/24/22 17:49 18 11/24/22 17:42 98.2 F 110 H 20 121/88 96 Intake and Output 11/24/22 11/24/22 11/24/22 06:59 14:59 22:59 Other: Weight 163.293 kg
[2022-11-24] MEDS: BACLOFEN 10 MG TAB PO SCH (20:46)
[2022-11-24] MEDS: GABAPENTIN 300 MG CAP PO SCH (20:46)
[2022-11-24] MEDS ORDERED: ATORVASTATIN 20 MG TAB PO SCH (21:00)
[2022-11-24] MEDS ORDERED: DOXAZOSIN 4 MG TAB PO SCH (21:00)
[2022-11-25] MEDS: HEPARIN SOD,PORK IN 0.45% NACL 25,000 UNIT in 0.45% NACL 1 250ML.BAG IV SCH (05:19)
[2022-11-25] MEDS ORDERED: CHOLECALCIFEROL 25 MCG (1000 IU) TABLET PO SCH (07:30)
[2022-11-25] MEDS ORDERED: PANTOPRAZOLE 40 MG TABLET PO SCH (07:30)
[2022-11-25] MEDS: GABAPENTIN 300 MG CAP PO SCH ×2 (08:23→16:27)
[2022-11-25] MEDS: BACLOFEN 10 MG TAB PO SCH (08:23)
[2022-11-25 08:34] LABS: Basophils % (A) 0 %; Eosinophils # (A) 0.4 k/uL (0-0.7); Eosinophils % (A) 4 %; HCT 47.7 % (39.0-53.0); HGB 15.4 gm/dL (13.0-17.5); Lymphocytes # (A) 1.2 k/uL (1.0-4.8); Lymphocytes % (A) 13 %; MCH 29.7 pg (25.0-35.0); MCHC 32.3 g/dL (31.0-37.0); MCV 91.9 fL (80.0-100.0); Mean Platelet Volume 8.7; Monocytes # (A) 0.6 k/uL (0-1.0); Monocytes % (A) 6 %; Neutrophils # (A) 7.2 k/uL (1.3-7.7); Neutrophils % (A) 75 %; Platelet Count 139 k/uL (150-450); RDW 14.9 % (11.5-15.5); WBC 9.5 k/uL (3.8-10.6)
[2022-11-25] MEDS ORDERED: ASPIRIN 325 MG TAB PO SCH (09:00)
[2022-11-25] MEDS ORDERED: MULTIVITAMINS, THERA 1 EACH TAB PO SCH (09:00)
[2022-11-25] MEDS ORDERED: hydroCHLOROthiazide 12.5 MG CAP PO SCH (09:00)
[2022-11-25] MEDS ORDERED: LOSARTAN 50 MG TAB PO SCH (09:00)
[2022-11-25 09:13] LABS: African American GFR (CKD) >90 (>60 ml/min/1.73 sqM); Anion Gap 9 mmol/L; Blood Urea Nitrogen 18 mg/dL (9-20); Calcium 8.6 mg/dL (8.4-10.2); Carbon Dioxide 25 mmol/L (22-30); Chloride 105 mmol/L (98-107); Glucose 143 mg/dL (74-99); Non-African American GFR(CKD) >90 (>60 ml/min/1.73 sqM); Potassium 3.7 mmol/L (3.5-5.1); Sodium 139 mmol/L (137-145)
[2022-11-25 11:00] LABS: Chol/HDL Ratio 2.32 Ratio; LDL Cholesterol,Calculated 63.8 mg/dL (0.0-131.0); VLDL Calculation 11.38 mg/dL (5.00-40.00)
[2022-11-25 11:13] VITALS: PULSE 82; RESP 16
--- NOTE | 2022-11-25 13:15 | CA ---
Transthoracic Echo Report Name: Torsten Doherty Age: 72 Gender: M : 1950 Exam Date: 11/25/2022 08:31 Exam Location: [facility] Ht (in): 66 Wt (lb): 360 Ordering Physician: Josette Haque MD Attending/Referring Phys: Hotel Desk Clerk Nikko Pacheco Procedure CPT: Indications: PE and rule out right heart strain Cardiac Hx: Technical Quality: Very technically difficult study Contrast 1: Lumason Total Dose (mL): 5 Contrast 2: Total Dose (mL): MEASUREMENTS (Male / Female) Normal Values 2D ECHO LV Diastolic Diameter PLAX 4.1 cm 4.2 - 5.9 / 3.9 - 5.3 cm LV Systolic Diameter PLAX 3.1 cm IVS Diastolic Thickness 1.4 cm 0.6 - 1.0 / 0.6 - 0.9 cm LVPW Diastolic Thickness 1.8 cm 0.6 - 1.0 / 0.6 - 0.9 cm LV Relative Wall Thickness 0.8 RV Internal Dim ED PLAX 3.7 cm LVOT Diameter 2.3 cm Aortic Root Diameter 3.3 cm LV Diastolic Volume MOD BP 56.5 cm??? 67 - 155 / 56 - 104 cm??? LV Systolic Volume MOD BP 23.4 cm??? 22 - 58 / 19 - 49 cm??? LV Ejection Fraction MOD BP 58.7 % >= 55 % LV Cardiac Index MOD BP 996.3 cm???/min???m??? LV Diastolic Volume MOD 4C 51.3 cm??? LV Systolic Volume MOD 4C 34.1 cm??? LV Ejection Fraction MOD 4C 33.4 % LV Cardiac Index MOD 4C 514.5 cm???/min???m??? LV Diastolic Length 4C 7.3 cm LV Systolic Length 4C 6.7 cm LV Diastolic Volume MOD 2C 60.8 cm??? LV Systolic Volume MOD 2C 15.4 cm??? LV Ejection Fraction MOD 2C 74.7 % LV Cardiac Index MOD 2C 1363.3 cm???/min???m??? LV Diastolic Length 2C 7.5 cm LV Systolic Length 2C 6.4 cm LA Volume 46.3 cm??? 18 - 58 / 22 - 52 cm??? DOPPLER AV Peak Velocity 161.6 cm/s AV Peak Gradient 10.5 mmHg LVOT Peak Velocity 109.7 cm/s LVOT Peak Gradient 4.8 mmHg AV Area Cont Eq pk 2.8 cm??? MV Peak Velocity 96.8 cm/s MV Peak Gradient 3.7 mmHg MV Mean Velocity 49.5 cm/s MV Mean Gradient 1.1 mmHg MV Velocity Time Integral 22.6 cm MR Peak Velocity 122.9 cm/s MR Peak Gradient 6.0 mmHg Mitral E Point Velocity 56.5 cm/s Mitral A Point Velocity 70.4 cm/s Mitral E to A Ratio 0.8 MV Deceleration Time 253.2 ms MV E' Velocity 9.6 cm/s Mitral E to MV E' Ratio 5.9 TR Peak Velocity 231.2 cm/s TR Peak Gradient 21.4 mmHg Right Ventricular Systolic Press 31.4 mmHg PV Peak Velocity 106.0 cm/s PV Peak Gradient 4.5 mmHg FINDINGS Left Ventricle Normal LVsize. Normal wall thickness. Left ventricular ejection fraction is estimated at 55-60 %. No obvious regional wall motion abnormality on contrast imaging. No evidence of LV thrombus. Grade 1 diastolic dysfunction Right Ventricle Normal right ventricular size. Right Atrium Normal right atrial size. Left Atrium Normal left atrial size. Mitral Valve Mitral valve not well visualized. Mild MR. Aortic Valve Aortic valve not well visualized. No aortic valve stenosis or regurgitation. Tricuspid Valve Tricuspid valve not well visualized. Trace TR. Pulmonic Valve Pulmonic valve not well visualized. No pulmonic regurgitation. Pericardium Not well visualized. Aorta Normal size aortic root . CONCLUSIONS Limited views.Very technically difficult study Normal LV size and wall thickness. Normal LV systolic function. LVEF estimated at 55% No obvious regional wall motion abnormality Grade 1 diastolic dysfunction No major valvular pathology No prior echo to compare with Previewed by: Dr Neville Murillo (Electronically Signed) Final Date: 25 November 2022 13:14
--- NOTE | 2022-11-25 15:17 | P.DS ---
Providers Date of admission: 11/24/22 18:49 Expected date of discharge: 11/25/22 Attending physician: Josette Haque MD Primary care physician: [facility] Course: Acute pulmonary embolism Hypertension Hyperlipidemia GERD BPH Morbid obesity Patient is a 72-year-old male with a past medical history of hypertension, hyperlipidemia, GERD, BPH, LUISANA and morbid obesity who is a transfer from [facility] for a pulmonary embolism. On arrival patient was afebrile, 121/88, heart rate 110, 96% on 3 L nasal cannula. CBC was unremarkable. Basic metabolic panel is unremarkable. Troponin was 0.048 and 0.046. Lipid panel is unremarkable. Patient was started on a heparin drip. Echocardiogram was done which did not show any evidence of right heart strain, did show good ejection fraction and no wall motion abnormality. Patient was subsequently cleared for discharge home. He was prescribed xarelto on discharge. He should follow-up with his primary care physician. I spent 35 minutes coordinating this discharge on 11/25 Gen: awake, alert HEENT: normocephalic, atraumatic, good hearing acuity, moist mucous membranes Resp: good air exchange, breathing comfortably with no accessory muscle use CVS: good distal perfusion x 4, GI: soft, NTTP, ND : no SPT, no CVAT, weller catheter not present MSK: no pitting edema, no clubbing Neuro: non-focal, moving all extremities Psych: cooperative, euthymic mood Patient Condition at Discharge: Good Plan - Discharge Summary New Discharge Prescriptions: New Rivaroxaban [Xarelto] 20 mg PO DAILY #30 tab Rivaroxaban [Xarelto] 15 mg PO BID #42 tab Continue Terazosin HCl 10 mg PO HS flaxseed oiL [[place]-3 Flaxseed Oil] 1,000 mg PO DAILY Losartan/Hydrochlorothiazide [Losartan-Hctz 100-12.5 mg Tab] 1 tab PO DAILY Ipratropium [place] 0.06%Nasal [Atrovent Nasal 0.06%] 2 spray EA NOSTRIL DAILY PRN PRN Reason: Allergy Symptoms Gabapentin 600 mg PO TID Simvastatin 40 mg PO HS Omeprazole 20 mg PO AC-BRKFST Multivitamin [Multivitamins Adult Gummies] 1 each PO DAILY Cholecalciferol [Vitamin D3 (25 Mcg = 1000 Iu)] 50 unit PO AC-BRKFST Baclofen 10 mg PO BID Lidocaine 5% Patch [Lidoderm 5% Patch] 1 patch TOPICAL DAILY PRN PRN Reason: Pain Zinc Gluconate [Zinc] 50 mg PO DAILY Discontinued Ibuprofen 800 mg PO Q8H PRN PRN Reason: Pain Discharge Medication List Baclofen 10 mg PO BID 11/25/21 [History] Cholecalciferol [Vitamin D3 (25 Mcg = 1000 Iu)] 50 unit PO AC-BRKFST 11/25/21 [History] Gabapentin 600 mg PO TID 11/25/21 [History] Multivitamin [Multivitamins Adult Gummies] 1 each PO DAILY 11/25/21 [History] Omeprazole 20 mg PO AC-BRKFST 11/25/21 [History] Simvastatin 40 mg PO HS 11/25/21 [History] Terazosin HCl 10 mg PO HS 11/25/21 [History] flaxseed oiL [[place]-3 Flaxseed Oil] 1,000 mg PO DAILY 11/25/21 [History] Losartan/Hydrochlorothiazide [Losartan-Hctz 100-12.5 mg Tab] 1 tab PO DAILY 03/16/22 [History] Ipratropium [place] 0.06%Nasal [Atrovent Nasal 0.06%] 2 spray EA NOSTRIL DAILY PRN 11/24/22 [History] Lidocaine 5% Patch [Lidoderm 5% Patch] 1 patch TOPICAL DAILY PRN 11/24/22 [History] Zinc Gluconate [Zinc] 50 mg PO DAILY 11/24/22 [History] Rivaroxaban [Xarelto] 15 mg PO BID #42 tab 11/25/22 [Rx] Rivaroxaban [Xarelto] 20 mg PO DAILY #30 tab 11/25/22 [Rx] Follow up Appointment(s)/Referral(s): Hanane May PAC [REFERRING] - 1-2 days Discharge Disposition: HOME SELF-CARE
[2022-11-25 15:25] VITALS: BP 150/77; TEMP 98
[2022-11-25] MEDS ORDERED: APIXABAN 5 MG TAB PO STA (16:16)
== END 2022-11-25 17:52 | disposition home or self-care (01) ==
LOC: EC 17:36 → 3SCARD 18:49
PROVIDERS: ADMIT Internal Medicine; ATTEND Internal Medicine
DX: I26.99 Other pulmonary embolism without acute cor pulmonale (principal); I10 Essential (primary) hypertension; E78.5 Hyperlipidemia, unspecified; G47.33 Obstructive sleep apnea (adult) (pediatric); M79.7 Fibromyalgia; N40.0 Benign prostatic hyperplasia without lower urinary tract symptoms; K44.9 Diaphragmatic hernia without obstruction or gangrene; K21.9 Gastro-esophageal reflux disease without esophagitis; E66.01 Morbid (severe) obesity due to excess calories; Z68.43 Body mass index [BMI] 50.0-59.9, adult; Z79.899 Other long term (current) drug therapy; Z96.612 Presence of left artificial shoulder joint; Z86.14 Personal history of Methicillin resistant Staphylococcus aureus infection; Z85.46 Personal history of malignant neoplasm of prostate; Z98.42 Cataract extraction status, left eye; Z98.41 Cataract extraction status, right eye
CPT/HCPCS: 96366 ×3; 96365; 99285; 94760 ×2; 93005; 93306; 80061; 80048; 84484 ×2; 85025; 85730; G0378 ×2; Q9950; J1644 ×2

== ENCOUNTER → 2022-12-08 | Outpatient (CLI) | payer OTHER ==
[2022-12-08 12:39] VITALS: BP 134/92; PULSE 81; RESP 15; TEMP 98.3
--- NOTE | 2022-12-08 15:16 | P.PAINPG ---
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 Pt states he experienced 90% pain relief x 3 wks s/p procedure. Pain level is provoked at 2/10 in intensity, constant, localized in the thoracic spine, achy in character w shooting towards the ribs. Pain is provoked by bending, lifting. Pain is alleviated with massage therapy every 2-3 wks, chiropractic treatments semi monthly, heat, ice, medications (Ibu, Neurontin, Baclofen), reclining and rest. Interventional pain procedures completed include PERNELL C7-T1, T11-T12 x1 Patient is currently on Ibu, Baclofen, Neurontin Patient denies any side effects of the medication(s), denies excessive drowsiness or sleepiness, denies suicidal ideation and reports that the current pain medication is helping to control the pain and improve activities of daily living. Patient denies any motor or sensory deficits. Patient denies any fever or night sweats, denies any change in the bowel movements or urination. Physical Examination: -Constitutional: Cooperative. Not in acute distress . - Neurologic: Cranial nerve II to XII intact. No focal neurological deficits. - Psychatric: Alert & oriented x 3. Matching mood & appropriate affect. Judgment and insight intact. - Musculoskeletal: Cervical spine: Muscle bulk/ tone/ strength in the bilateral upper extremities normal Vertebral body tenderness to palpation over Spurling test positive Distraction test positive Facet loading test positive Thoracic spine Muscle bulk / tone/ strength in the bilateral paraspinal muscles normal Vertebral body tender to palpation Facet loading test positive Lumbar spine: Motor bulk/ tone/ strength lower extremities , thigh and legs : 5/5 Deep tendon reflexes : Normal Knee Jerk. Normal Ankle Jerk . Vertebral body tenderness to palpation over Lumbar Facet Loading Test positive Straight Leg Raise: positive at 30 degrees right side/ left side Gaenslen's Test positive Sacral spine : Severe tenderness over the Sacroiliac joint: right side / left side Range of motion: Flexion of the lumbar spine <60 degrees Range of motion: Extension of the lumbar spine <20 degrees Gaenslen's Test positive Rosi test: positive right side / left side Thigh Thrust Test Sacral Thrust Test Imaging: Thoracic spine MRI non contrast from 10/25/22 reviewed Assessment and plan: Chronic mid back pain secondary to thoracic disc bulges, DDD, spondylosis with facet arthropathy without myelopathy Will manage residual pain at home and may return to clinic on an as needed basis. All patient questions answered I have spent less than 30 minutes on patient care today. Dr Christianson was available by phone for the evaluation of this patient. The time was used to review the medical records including relevant urine studies and Prescription history (MAPs), review of the available imaging, evaluation and examination of the patient, coordination of care with the medical staff and if applicable referring physicians, as well as creation of the medical record PQRS Narrative: Hx Alcohol Use (MH) Yes: RARELY Home Medications: Ambulatory Orders Baclofen 10 mg PO BID 11/25/21 Cholecalciferol [Vitamin D3 (25 Mcg = 1000 Iu)] 50 unit PO AC-BRKFST 11/25/21 Gabapentin 600 mg PO TID 11/25/21 Multivitamin [Multivitamins Adult Gummies] 1 each PO DAILY 11/25/21 Omeprazole 20 mg PO AC-BRKFST 11/25/21 Simvastatin 40 mg PO HS 11/25/21 Terazosin HCl 10 mg PO HS 11/25/21 flaxseed oiL [[place]-3 Flaxseed Oil] 1,000 mg PO DAILY 11/25/21 Losartan/Hydrochlorothiazide [Losartan-Hctz 100-12.5 mg Tab] 1 tab PO DAILY 03/16/22 Ipratropium [place] 0.06%Nasal [Atrovent Nasal 0.06%] 2 spray EA NOSTRIL DAILY PRN 11/24/22 Lidocaine 5% Patch [Lidoderm 5% Patch] 1 patch TOPICAL DAILY PRN 11/24/22 Zinc Gluconate [Zinc] 50 mg PO DAILY 11/24/22 Apixaban [Eliquis] 5 mg PO BID #60 tablet 11/25/22 Apixaban [Eliquis] 10 mg PO BID #28 tab 11/25/22 Controlled Substance Measures - Controlled Substance Measures Is patient prescribed a controlled substance at discharge?: No
== END ==
LOC: PNWHC3 12:17
PROVIDERS: ATTEND Specialist
DX: M51.34 Other intervertebral disc degeneration, thoracic region (principal); M47.814 Spondylosis without myelopathy or radiculopathy, thoracic region; G89.29 Other chronic pain
CPT/HCPCS: 99211

== ENCOUNTER → 2023-03-21 | Outpatient (CLI) | payer OTHER ==
[2023-03-21 13:58] VITALS: BP 150/84; PULSE 95; RESP 16; TEMP 97.9
--- NOTE | 2023-03-21 14:43 | P.PAINPG ---
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 Pain level is provoked at 8/10 in intensity, constant, localized in the thoracic spine, predominantly axial, achy in characte r w occasional shooting towards the ribs. Pain is provoked by bending, lifting. Pain is alleviated with PT weekly x 2 wks which he is currently in, massage therapy every 2-3 wks which he is currently in, chiropractic treatments semi monthly for years which he is currently in, heat, ice, medications, reclining and rest. Oswestry axial pain score of 17. Interventional pain procedures completed include PERNELL C7-T1, T11-T12 x1 Patient is currently on Ibu, Baclofen, Neurontin Patient denies any side effects of the medication(s), denies excessive drowsiness or sleepiness, denies suicidal ideation and reports that the current pain medication is helping to control the pain and improve activities of daily living. Patient denies any motor or sensory deficits. Patient denies any fever or night sweats, denies any change in the bowel movements or urination. Physical Examination: -Constitutional: Cooperative. Not in acute distress . - Neurologic: Cranial nerve II to XII intact. No focal neurological deficits. - Psychatric: Alert & oriented x 3. Matching mood & appropriate affect. Judgment and insight intact. - Musculoskeletal: Cervical spine: Muscle bulk/ tone/ strength in the bilateral upper extremities normal Vertebral body tenderness to palpation over Spurling test positive Distraction test positive Facet loading test positive Thoracic spine Muscle bulk / tone/ strength in the bilateral paraspinal muscles normal Vertebral body tender to palpation over T2 Facet loading test positive Lumbar spine: Motor bulk/ tone/ strength lower extremities , thigh and legs : 5/5 Deep tendon reflexes : Normal Knee Jerk. Normal Ankle Jerk . Vertebral body tenderness to palpation over Lumbar Facet Loading Test positive Straight Leg Raise: positive at 30 degrees right side/ left side Gaenslen's Test positive Sacral spine : Severe tenderness over the Sacroiliac joint: right side / left side Range of motion: Flexion of the lumbar spine <60 degrees Range of motion: Extension of the lumbar spine <20 degrees Gaenslen's Test positive Rosi test: positive right side / left side Thigh Thrust Test Sacral Thrust Test Imaging: Thoracic spine MRI non contrast from 7/10/23 reviewed Lumbar spine MRI non contrast from 10/08/21 reviewed Assessment and plan: Chronic mid back pain secondary to thoracic disc bulges, DDD, spondylosis with facet arthropathy without myelopathy Recommendation of PERNELL T2-T3 #2. May need a series of injections for optimal pain relief. Risks, benefits of procedure discussed and patient verbalized understanding. Protocol for discontinuation/continuation of medications surrounding procedure discussed. MRI Lumbar spine M51.36 ordered. All patient questions answered I have spent less than 30 minutes on patient care today. Dr Christianson was available by phone for the evaluation of this patient. The time was used to review the medical records including relevant urine studies and Prescription history (MAPs), review of the available imaging, evaluation and examination of the patient, coordination of care with the medical staff and if applicable referring physicians, as well as creation of the medical record PQRS Narrative: Hx Alcohol Use (MH) Yes: RARELY Home Medications: Ambulatory Orders Baclofen 10 mg PO BID 11/25/21 Cholecalciferol [Vitamin D3 (25 Mcg = 1000 Iu)] 50 unit PO AC-BRKFST 11/25/21 Gabapentin 600 mg PO TID 11/25/21 Multivitamin [Multivitamins Adult Gummies] 1 each PO DAILY 11/25/21 Omeprazole 20 mg PO AC-BRKFST 11/25/21 Simvastatin 40 mg PO HS 11/25/21 Terazosin HCl 10 mg PO HS 11/25/21 flaxseed oiL [[place]-3 Flaxseed Oil] 1,000 mg PO DAILY 11/25/21 Losartan/Hydrochlorothiazide [Losartan-Hctz 100-12.5 mg Tab] 1 tab PO DAILY 03/16/22 Ipratropium [place] 0.06%Nasal [Atrovent Nasal 0.06%] 2 spray EA NOSTRIL DAILY PRN 11/24/22 L.idocaine 5% Patch [Lidoderm 5% Patch] 1 patch TOPICAL DAILY PRN 11/24/22 Zinc Gluconate [Zinc] 50 mg PO DAILY 11/24/22 Apixaban [Eliquis] 5 mg PO BID #60 tablet 11/25/22 Apixaban [Eliquis] 10 mg PO BID #28 tab 11/25/22 Controlled Substance Measures - Controlled Substance Measures Is patient prescribed a controlled substance at discharge?: No
== END ==
LOC: PNWHC3 13:06
PROVIDERS: ATTEND Specialist
DX: S24.119A Complete lesion at unspecified level of thoracic spinal cord, initial encounter (principal); G89.29 Other chronic pain; M51.34 Other intervertebral disc degeneration, thoracic region; M47.814 Spondylosis without myelopathy or radiculopathy, thoracic region
CPT/HCPCS: 99211

== ENCOUNTER 2023-04-12 12:13 | Day surgery (SDC) | payer OTHER ==
[2023-04-12 12:40] VITALS: RESP 18; TEMP 97.8
[2023-04-12] MEDS ORDERED: IOPAMIDOL M200 10 ML VIAL ONE (13:20)
[2023-04-12] MEDS ORDERED: ROPIVACAINE 5MG/ML 20ML VIAL ONE (13:20)
[2023-04-12] MEDS ORDERED: methylPREDNISolone ACETATE 80 MG/ML 1 ML VIAL ONE (13:20)
--- NOTE | 2023-04-12 13:50 | P.PCN ---
Description of Procedure: PREOPERATIVE DIAGNOSIS: 1- thoracic Degenerative Disc Diseases 2-thoracic spondylosis with Facet arthropathy without myelopathy. Thoracic spinal stenosis POSTOPERATIVE DIAGNOSIS: As above. PROCEDURE Injection of radio contrast material into T3-4 interspace, interpretation of epidurogram, injection of steroid at T3-4epidural space under fluoroscopic guidance. ANESTHESIA: Lidocaine 1% subcutaneously. In OR continuous pulse ox, EKG, blood pressure and verbal communication was maintained with the patient. EBL: Minimal PROCEDURE INDICATION: Before the procedure were discussed with the patient detailed procedure, alternatives, complications including infection, bleeding, nerve damage, paralysis all of which could be permanent. Patient understands and all questions were answered. PROCEDURE DESCRIPTION : After getting consent, patient in OR in prone position. Back was prepped with chlorhexidine and draped in sterile fashion. After injecting 10 mL of 1% lidocaine subcutaneously, a 20-gauge Tuohy needle was introduced at T3-4 interspace with loss of resistance technique using a syringe filled with air. N egative CSF, negative blood, negative paresthesia. Needle position was confirmed with AP and lateral view of the fluoroscope. After repeat negative aspiration 2 mL of Omnipaque 200 water soluble contrast was injected. Contrast was noted in the epidural space. No contrast was noted into intrathecal or intravascular space. After repeat negative aspiration 6 mL solution was injected intermittently which consists of 5 mL of preservative-free normal saline mixed with 1 mL of 80 mg Depo-Medrol. Needle was withdrawn intact. Skin was cleansed and Band-Aids was applied. DISPOSITION / PLANS: The patient tolerated the procedure well. No complication. The patient was placed in a supine position and transferred to the recovery area in a stable condition for observation. There was no evidence of lower extremity motor or sensory deficit after the procedure. Patient was discharged from the recovery room after meeting discharge criteria. Home discharge instructions were given to the patient by the staff. The patient was reexamined prior to discharge. The patient will schedule a follow up in the clinic in 2-4 weeks.
[2023-04-12] MEDS ORDERED: LACTATED RINGERS 1,000 ML IV SCH (14:02)
[2023-04-12 14:13] VITALS: BP 117/81
[2023-04-12 14:36] VITALS: PULSE 74
--- NOTE | 2023-04-12 14:45 | FL ---
EXAMINATION TYPE: FL guided pain mgmt statistic Intraoperative/procedural fluoroscopic services were provided. Total fluoroscopy time is 55.6 seconds with a total of 2 submitted images to PACS. Please s ee the operative/procedural note for further details. DAP: [id number] mGym2
== END 2023-04-12 14:20 | disposition home or self-care (01) ==
LOC: ORPAIN 12:13
PROVIDERS: ATTEND Pain Medicine Interventional Pain Medicine
DX: M51.34 Other intervertebral disc degeneration, thoracic region (principal); M47.814 Spondylosis without myelopathy or radiculopathy, thoracic region; M48.04 Spinal stenosis, thoracic region; Z79.01 Long term (current) use of anticoagulants
CPT/HCPCS: 62321; J1040; Q9966; J2795

== ENCOUNTER → 2023-05-11 | Outpatient (CLI) | payer OTHER ==
--- NOTE | 2023-05-11 12:56 | P.PAINPG ---
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 Pt states he experienced 50 % pain relief x 4 days s/p procedure. Pain level is provoked at 7/10 in intensit y, constant, localized in the thoracic spine, predominantly axial, sharp in character w occasional shooting down the spine. Pain is provoked by driving. Pain is alleviated with PT weekly x 8 wks which ended in Apr 2023, massage therapy every 2-3 wks which he is currently in, chiropractic treatments semi monthly for years which he is currently in, heat, ice, medications, reclining and rest. Oswestry axial pain score of 16. Interventional pain procedures completed include PERNELL C7-T1, T11-T12 x1. PERNELL T3- T4 x1 Patient is currently on Ibu, Baclofen, Neurontin Patient denies any side effects of the medication(s), denies excessive drowsiness or sleepiness, denies suicidal ideation and reports that the current pain medication is helping to control the pain and improve activities of daily living. Patient denies any motor or sensory deficits. Patient denies any fever or night sweats, denies any change in the bowel movements or urination. Physical Examination: -Constitutional: Cooperative. Not in acute distress . - Neurologic: Cranial nerve II to XII intact. No focal neurological deficits. - Psychatric: Alert & oriented x 3. Matching mood & appropriate affect. Judgment and insight intact. - Musculoskeletal: Cervical spine: Muscle bulk/ tone/ strength in the bilateral upper extremities normal Vertebral body tenderness to palpation over Spurling test positive Distraction test positive Facet loading test positive Thoracic spine Muscle bulk / tone/ strength in the bilateral paraspinal muscles normal Vertebral body tender to palpation Taut bands w twitch response over BL T1-T10 Facet loading test positive Lumbar spine: Motor bulk/ tone/ strength lower extremities , thigh and legs : 5/5 Deep tendon reflexes : Normal Knee Jerk. Normal Ankle Jerk . Vertebral body tenderness to palpation over Lumbar Facet Loading Test positive Straight Leg Raise: positive at 30 degrees right side/ left side Gaenslen's Test positive Sacral spine : Severe tenderness over the Sacroiliac joint: right side / left side Range of motion: Flexion of the lumbar spine <60 degrees Range of motion: Extension of the lumbar spine <20 degrees Gaenslen's Test positive Rosi test: positive right side / left side Thigh Thrust Test Sacral Thrust Test Imaging: Thoracic spine MRI non contrast from 10/25/22 reviewed Lumbar spine MRI non contrast from 10/08/21 reviewed Assessment and plan: Chronic mid back pain secondary to thoracic disc bulges, DDD, spondylosis with facet arthropathy without myelopathy Recommendation of BL TPIs T1-T10 #1. May need a series of injections for optimal pain relief. Risks, benefits of procedure discussed and patient verbalized understanding. Protocol for discontinuation/continuation of medications surrounding procedure discussed. All patient questions answered I have spent less than 30 minutes on patient care today. Dr Christianson was available by phone for the evaluation of this patient. The time was used to review the medical records including relevant urine studies and Prescription history (MAPs), review of the available imaging, evaluation and examination of the patient, coordination of care with the medical staff and if applicable referring physicians, as well as creation of the medical record PQRS Narrative: Hx Alcohol Use (MH) Yes: RARELY Home Medications: Ambulatory Orders Baclofen 10 mg PO BID 11/25/21 Cholecalciferol [Vitamin D3 (25 Mcg = 1000 Iu)] 50 unit PO AC-BRKFST 11/25/21 Gabapentin 600 mg PO BID 11/25/21 Multivitamin [Multivitamins Adult Gummies] 1 each PO DAILY 11/25/21 Omeprazole 20 mg PO AC-BRKFST 11/25/21 Simvastatin 40 mg PO HS 11/25/21 Terazosin HCl 10 mg PO HS 11/25/21 Losartan/Hydrochlorothiazide [Losartan-Hctz 100-12.5 mg Tab] 1 tab PO DAILY 03/16/22 Lidocaine 5% Patch [Lidoderm 5% Patch] 1 patch TOPICAL DAILY PRN 11/24/22 Zinc Gluconate [Zinc] 50 mg PO DAILY 11/24/22 Apixaban [Eliquis] 5 mg PO BID #60 tablet 11/25/22 Controlled Substance Measures - Controlled Substance Measures Is patient prescribed a controlled substance at discharge?: No
[2023-05-11 13:17] VITALS: BP 126/82; PULSE 87; RESP 16
== END ==
LOC: PNWHC3 12:22
PROVIDERS: ATTEND Specialist
DX: M51.24 Other intervertebral disc displacement, thoracic region (principal); M47.814 Spondylosis without myelopathy or radiculopathy, thoracic region; G89.29 Other chronic pain
CPT/HCPCS: 99211

== ENCOUNTER 2023-05-24 11:00 | Day surgery (SDC) | payer OTHER ==
[2023-05-24] MEDS ORDERED: methylPREDNISolone ACETATE 40 MG/ML 1 ML VIAL ONE (11:31)
[2023-05-24] MEDS ORDERED: ROPIVACAINE 5MG/ML 20ML VIAL ONE (11:31)
[2023-05-24 11:35] VITALS: RESP 16
--- NOTE | 2023-05-24 11:37 | P.PCN ---
Date of Procedure: 05/24/23 Description of Procedure: Procedure: Bilateral trigger point injection between T1 and T10 Preoperative Diagnosis: myofascial pain syndrome Postoperative diagnosis: Same Anesthesia: Local EBL 0 Surgeon: Reji Shipley MD Indications for procedure: Patient with myofascial pain and palpable trigger points in the above mentioned muscles. The patient consents for an injection after an explanation of risks including but not limited to bleeding and infection, benefits, and alternatives and the patient has signed a consent form indicating understanding of all of them. Description of procedure: After informed consent was obtained the patient's painful area was sterilely prepped in the usual fashion with ChloraPrep. The trigger points were identified via palpation and the muscles were marked sterilely. Each trigger point was injected with a 25-gauge one and a half inch needle. At that point a solution consisting of 18 ml of 0.5% ropivacaine with 40mg of depomedrol was distributed evenly over the trigger points. The patient's vital signs were stable afterwards and the procedure was tolerated well. Patient was discharged home with follow-up instructions. It was explained to the patient that these injections are not curative but may help with the current symptoms. In order to strengthen the muscles involved, there needs to be dedicated exercise routine to strengthen the muscles and avoid significant muscle spasms..
[2023-05-24 12:34] VITALS: BP 142/75; PULSE 87
== END 2023-05-24 12:13 | disposition home or self-care (01) ==
LOC: ORPAIN 11:00
PROVIDERS: ATTEND Hospitalist
DX: M79.18 Myalgia, other site (principal); Z79.01 Long term (current) use of anticoagulants
CPT/HCPCS: 20553; J1030; J2795

== ENCOUNTER → 2023-06-30 | Outpatient (CLI) | payer OTHER ==
--- NOTE | 2023-06-30 12:52 | P.PAINPG ---
PQRS Measure Charge Sheet Comment: A 72 yr old male with a history of severe and chronic LBP > 10 yrs secondary to DDD and spondylosis with facet arthropathy without myelopathy presents today for evaluation s/p BL TPIs T1-T10 #1. Pt states he experienced 50 % pain relief x 5 wks s/p procedure. Pain level is provoked at 5 /10 in intensity, constant, localized in the lumbar spine, predominantly axial, sharp in character w occasional shooting down the LEs. Pain is provoked by driving. Pain is alleviated with PT weekly x 8 wks which ended in Apr 2023, massage therapy every 2-3 wks which he is currently in, chiropractic treatments semi monthly for years which he is currently in, heat, ice, medications, reclining and rest. Oswestry axial pain score of 15. Interventional pain procedures completed include PERNELL C7-T1, T11-T12 x1, PERNELL T3- T4 x1, BL TPIs T1-T10 x1 Patient is currently on Ibu, Baclofen, Neurontin Patient denies any side effects of the medication(s), denies excessive drowsiness or sleepiness, denies suicidal ideation and reports that the current pain medication is helping to control the pain and improve activities of daily living. Patient denies any motor or sensory deficits. Patient denies any fever or night sweats, denies any change in the bowel movements or urination. Physical Examination: -Constitutional: Cooperative. Not in acute distress . - Neurologic: Cranial nerve II to XII intact. No focal neurological deficits. - Psychatric: Alert & oriented x 3. Matching mood & appropriate affect. Judgment and insight intact. - Musculoskeletal: Cervical spine: Muscle bulk/ tone/ strength in the bilateral upper extremities normal Vertebral body tenderness to palpation over Spurling test positive Distraction test positive Facet loading test positive Thoracic spine Muscle bulk / tone/ strength in the bilateral paraspinal muscles normal Vertebral body tender to palpation Taut bands w twitch response Facet loading test positive Lumbar spine: Motor bulk/ tone/ strength lower extremities , thigh and legs : 5/5 Deep tendon reflexes : Normal Knee Jerk. Normal Ankle Jerk . Vertebral body tenderness to palpation over L5 Lumbar Facet Loading Test positive Straight Leg Raise: positive at 30 degrees right side/ left side Gaenslen's Test positive Sacral spine : Severe tenderness over the Sacroiliac joint: right side / left side Range of motion: Flexion of the lumbar spine <60 degrees Range of motion: Extension of the lumbar spine <20 degrees Gaenslen's Test positive Rosi test: positive right side / left side Thigh Thrust Test Sacral Thrust Test Imaging: Thoracic spine MRI non contrast from 10/25/22 reviewed Lumbar spine MRI non contrast from 10/08/21 reviewed Assessment and plan: Chronic LBP secondary to disc bulges, DDD, spondylosis with facet arthropathy without myelopathy Recommendation of lumbar x ray May need additional testing if clinically indicated. All patient questions answered I have spent less than 30 minutes on patient care today. Dr Christianson was available by phone for the evaluation of this patient. The time was used to review the medical records including relevant urine studies and Prescription history (MAPs), review of the available imaging, evaluation and examination of the patient, coordination of care with the medical staff and if applicable referring physicians, as well as creation of the medical record PQRS Narrative: Hx Alcohol Use (MH) Yes: RARELY Home Medications: Ambulatory Orders Baclofen 10 mg PO BID 11/25/21 Cholecalciferol [Vitamin D3 (25 Mcg = 1000 Iu)] 50 unit PO AC-BRKFST 11/25/21 Gabapentin 600 mg PO BID 11/25/21 Multivitamin [Multivitamins Adult Gummies] 1 each PO QAM 11/25/21 Omeprazole 20 mg PO AC-BRKFST 11/25/21 Simvastatin 40 mg PO HS 11/25/21 Terazosin HCl 10 mg PO HS 11/25/21 Losartan/Hydrochlorothiazide [Losartan-Hctz 100-12.5 mg Tab] 1 tab PO QAM 03/16/22 Lidocaine 5% Patch [Lidoderm 5% Patch] 1 patch TOPICAL DAILY PRN 11/24/22 Zinc Gluconate [Zinc] 50 mg PO QAM 11/24/22 Apixaban [Eliquis] 5 mg PO BID #60 tablet 11/25/22 Controlled Substance Measures - Controlled Substance Measures Is patient prescribed a controlled substance at discharge?: No
[2023-06-30 13:29] VITALS: BP 138/89; PULSE 77; RESP 15; TEMP 98.4
--- NOTE | 2023-07-01 16:06 | XR ---
EXAMINATION TYPE: XR lumbar spine 3V DATE OF EXAM: 06/30/2023 Comparison: None Clinical History: 72-year-old male M51.36 OTHER INTERVERTEBRAL DISC DEGENERATION, LUMBAR REGION Findings: Dextroconvex curvature centered at the upper lumbar spine. 5 lumbar type vertebral bodies. Baastrup's disease. Moderate multilevel degenerative disc disease. Vertebral body heights are preserved. Some s traightening of the normal lumbar lordosis. Alignment is preserved. Impression: 1. Moderate multilevel degenerative disc disease along with hypertrophic facet arthropathy, severe in the lower lumbar spine. 2. Baastrup's disease. 3. No vertebral compression collapse or malalignment.
== END ==
LOC: PNWHC3 12:20
PROVIDERS: ATTEND Specialist
DX: M51.35 Other intervertebral disc degeneration, thoracolumbar region (principal); M47.815 Spondylosis without myelopathy or radiculopathy, thoracolumbar region; G89.29 Other chronic pain; M51.25 Other intervertebral disc displacement, thoracolumbar region; Z79.01 Long term (current) use of anticoagulants
CPT/HCPCS: 72100; 99211

== ENCOUNTER → 2023-08-10 | Outpatient (CLI) | payer OTHER ==
[2023-08-10 13:11] VITALS: BP 125/83; PULSE 78; RESP 16; TEMP 97.7
--- NOTE | 2023-08-10 14:36 | P.PAINPG ---
PQRS Measure Charge Sheet Comment: A 72 yr old male with a history of severe and chronic LBP > 10 yrs secondary to DDD and spondylosis with facet arthropathy without myelopathy presents today for evaluation. Pain level is provoked at 6 /10 in intensity, constant, localized in the lumbar spine, predominantly axial, sharp in character w occasional shooting down the back of the LLE. Pain is provoked by driving. Pain is alleviated with PT weekly x 8 wks which ended in Apr 2023, massage therapy every 2-3 wks which he is currently in, chiropractic treatments semi monthly for years which he is currently in, heat, ice, medications, reclining and rest. Oswestry axial pain score of 16. Interventional pain procedures completed include PERNELL C7-T1, T11-T12 x1, PERNELL T3- T4 x1, BL TPIs T1-T10 x1 Patient is currently on Ibu, Baclofen, Neurontin Patient denies any side effects of the medication(s), denies excessive drowsiness or sleepiness, denies suicidal ideation and reports that the current pain medication is helping to control the pain and improve activities of daily living. Patient denies any motor or sensory deficits. Patient denies any fever or night sweats, denies any change in the bowel movements or urination. Physical Examination: -Constitutional: Cooperative. Not in acute distress . - Neurologic: Cranial nerve II to XII intact. No focal neurological deficits. - Psychatric: Alert & oriented x 3. Matching mood & appropriate affect. Judgment and insight intact. - Musculoskeletal: Cervical spine: Muscle bulk/ tone/ strength in the bilateral upper extremities normal Vertebral body tenderness to palpation over Spurling test positive Distraction test positive Facet loading test positive Thoracic spine Muscle bulk / tone/ strength in the bilateral paraspinal muscles normal Vertebral body tender to palpation Taut bands w twitch response Facet loading test positive Lumbar spine: Motor bulk/ tone/ strength lower extremities , thigh and legs : 5/5 Deep tendon reflexes : Normal Knee Jerk. Normal Ankle Jerk . Vertebral body tenderness to palpation over L3 Hood test +L L L3-L4 Lumbar Facet Loading Test positive Straight Leg Raise: positive at 30 degrees right side/ left side Gaenslen's Test positive Sacral spine : Severe tenderness over the Sacroiliac joint: right side / left side Range of motion: Flexion of the lumbar spine <60 degrees Range of motion: Extension of the lumbar spine <20 degrees Gaenslen's Test positive Rosi test: positive right side / left side Thigh Thrust Test Sacral Thrust Test Imaging: Thoracic spine MRI non contrast from 10/25/22 reviewed Lumbar spine MRI non contrast from 07/29/23 reviewed Assessment and plan: Chronic LBP secondary to disc bulges, DDD, spondylosis with facet arthropathy without myelopathy Recommendation of PERNELL L3-L4 #1. May need a series of injections for optimal pain relief. Risk, benefits of procedure discussed and patient verbalized understanding. Protocol for discontinuation/continuation of medication surrounding procedure discussed. All patient questions answered I have spent less than 30 minutes on patient care today. Dr Christianson was available by phone for the evaluation of this patient. The time was used to review the medical records including relevant urine studies and Prescription history (MAPs), review of the available imaging, evaluation and examination of the patient, coordination of care with the medical staff and if applicable referring physicians, as well as creation of the medical record PQRS Narrative: Hx Alcohol Use (MH) Yes: RARELY Home Medications: Ambulatory Orders Baclofen 10 mg PO BID 11/25/21 Cholecalciferol [Vitamin D3 (25 Mcg = 1000 Iu)] 50 unit PO AC-BRKFST 11/25/21 Gabapentin 600 mg PO BID 11/25/21 Multivitamin [Multivitamins Adult Gummies] 1 each PO QAM 11/25/21 Omeprazole 20 mg PO AC-BRKFST 11/25/21 Simvastatin 40 mg PO HS 11/25/21 Terazosin HCl 10 mg PO HS 11/25/21 Losartan/Hydrochlorothiazide [Losartan-Hctz 100-12.5 mg Tab] 1 tab PO QAM 03/16/22 Lidocaine 5% Patch [Lidoderm 5% Patch] 1 patch TOPICAL DAILY PRN 11/24/22 Zinc Gluconate [Zinc] 50 mg PO QAM 11/24/22 Apixaban [Eliquis] 5 mg PO BID #60 tablet 11/25/22 Controlled Substance Measures - Controlled Substance Measures Is patient prescribed a controlled substance at discharge?: No
== END ==
LOC: PNWHC3 12:42
PROVIDERS: ATTEND Specialist
DX: M51.36 Other intervertebral disc degeneration, lumbar region (principal); M47.816 Spondylosis without myelopathy or radiculopathy, lumbar region; G89.29 Other chronic pain
CPT/HCPCS: 99211

== ENCOUNTER 2023-08-23 11:58 | Day surgery (SDC) | payer OTHER ==
[2023-08-18 15:59] VITALS: BMI 59.3
[2023-08-23] MEDS ORDERED: ROPIVACAINE 5MG/ML 20ML VIAL ONE (12:28)
[2023-08-23] MEDS ORDERED: methylPREDNISolone ACETATE 40 MG/ML 1 ML VIAL ONE (12:28)
[2023-08-23] MEDS ORDERED: IOPAMIDOL M200 10 ML VIAL ONE (12:28)
--- NOTE | 2023-08-23 12:40 | P.PCN ---
Date of Procedure: 08/23/23 Surgeon: Reuben Chavez Pathology: none sent Condition: stable Disposition: PACU Description of Procedure: PREOPERATIVE DIAGNOSIS: 1-Lumbar radiculopathy 2- Lumber Degenerative Disc Diseases. POSTOPERATIVE DIAGNOSIS: 1-Lumbar radiculopathy. 2-Lumbar Degenerative Disc Diseases PROCEDURE 1. Lumbar epidural steroid injection under fluoroscopic guidance at the L3-4 level in the left paramedian approach. 2. Lumbar epidurogram. ANESTHESIA: Local only with 1% lidocaine EBL: Minimal PROCEDURE INDICATION: The patient with low back pain and radiculitis symptoms unresponsive to conservative treatment. Fluoroscopy was used to optimize visualization of the needle placement and to maximize safety. PROCEDURE DESCRIPTION / TECHNIQUE: The patient was seen and identified in the preoperative area. Risks, benefits, complications including but not limited to infections ,bleeding ,allergic reaction to the medications ,nerve damage and not complete pain relief , and alternatives were discussed with the patient. The patient agreed to proceed with the procedure and signed the consent. IV was started, and vital signs were stable. Patient was taken to the OR and time out was completed. The patient was placed in the prone position on procedure table and a pillow was placed under the abdomen to reduce lumbar lordosis. The lumbosacral area was prepped and draped in the usual sterile fashion with ChloraPrep.Patient was closely monitored during the procedure. Conscious sedation was used during the procedure to decrease patients anxiety. Vital signs were monitered during the entire pro cedure. Using anterior-posterior fluoroscopy, the L3-4 interlaminar space was identified and the skin over this site was marked and then infiltrated with 1% lidocaine subcutaneously. Subsequently, a 18-gauge 6"Tuohy epidural needle was inserted and advanced toward the epidural space using the Loss of resistance to air technique and guided by AP and lateral fluoroscopy. The correct needle position in the epidural space was verified with the injection of 1 mL of the water soluble contrast dye Omnipaque 180 contrast and observing an excellent epidurogram with the epidural spread of the dye, after negative aspiration for blood and CSF and in the absence of paresthesias. Again after negative aspiration, a 8 ml mixture containing 40 mg of Depo Medrol and 5 ml of preservative free Normal Saline, and 2 ml of preservative free Ropivacaine 0.5% solution was injected and a washout of epidurogram was seen. Needle was withdrawn intact, skin was cleansed, and bandages were applied. patient geovany rated procedure well and was transferred to PACU in stable condition.A copy of the needle placement picture was saved to the fluoroscopy machine. COMPLICATIONS: None DISPOSITION / PLANS: The patient was placed in a supine position and transferred to the recovery area in a stable condition for observation. There was no evidence of lower extremity motor or sensory deficit after the procedure. Hramony fields was discharged from the recovery room after meeting discharge criteria. Home discharge instructions were given to the patient by the staff. The patient was reexamined prior to discharge. The patient will schedule a follow up in the clinic in 2-4 weeks.
[2023-08-23 12:55] VITALS: RESP 16; TEMP 97.6
[2023-08-23 13:41] VITALS: BP 133/69; PULSE 82
--- NOTE | 2023-08-23 14:34 | FL ---
EXAMINATION TYPE: FL guided pain mgmt statistic Intraoperative/procedural fluoroscopic services were provided. Total fluoroscopy time is 13.3 seconds with a total of 2 submitted images to PACS. Please s ee the operative/procedural note for further details. DAP: [id number] mGym2
== END 2023-08-23 13:15 | disposition home or self-care (01) ==
LOC: ORPAIN 11:58
PROVIDERS: ATTEND Anesthesiology
DX: M51.16 Intervertebral disc disorders with radiculopathy, lumbar region (principal); Z79.01 Long term (current) use of anticoagulants; Z79.899 Other long term (current) drug therapy
CPT/HCPCS: 62323; Q9966; J2795; J1010

== ENCOUNTER → 2023-09-21 | Outpatient (CLI) | payer OTHER ==
[2023-09-21 13:27] VITALS: BP 166/75; PULSE 79; RESP 16
--- NOTE | 2023-09-21 15:19 | P.PAINPG ---
PQRS Measure Charge Sheet Comment: A 72 yr old male with a history of severe and chronic LBP > 10 yrs secondary to DDD and spondylosis with facet arthropathy without myelopathy presents today for evaluation s/p L paramedian L3-L4 #1. Pt states he experienced 50 % pain relief x 4 wks s/p procedure. Pain level is provoked at 7 /10 in intensity, constant, localized in the lumbar spine, predominantly axial, sharp in character w occasional shooting towards the L hip. Pain is provoked by standing from a sitting position. Pain is alleviated with PT weekly x 8 wks which ended in Apr 2023, massage therapy every 2-3 wks which he is currently in, chiropractic treatments semi monthly for years w his last visit August 2023, heat, ice, medications, use of a cane for ambulatory assistance, reclining and rest. Oswestry axial pain score of 16. Interventional pain procedures completed include PERNELL C7-T1, T11-T12 x1, PERNELL T3- T4 x1, BL TPIs T1-T10 x1, PERNELL L3-L4 x1 (Jul 2023) Patient is currently on Ibu, Baclofen, Neurontin Patient denies any side effects of the medication(s), denies excessive drowsiness or sleepiness, denies suicidal ideation and reports that the current pain medication is helping to control the pain and improve activities of daily living. Patient denies any motor or sensory deficits. Patient denies any fever or night sweats, denies any change in the bowel movements or urination. Physical Examination: -Constitutional: Cooperative. Not in acute distress . - Neurologic: Cranial nerve II to XII intact. No focal neurological defi cits. - Psychatric: Alert & oriented x 3. Matching mood & appropriate affect. Judgment and insight intact. - Musculoskeletal: Cervical spine: Muscle bulk/ tone/ strength in the bilateral upper extremities normal Vertebral body tenderness to palpation over Spurling test positive Distraction test positive Facet loading test positive Thoracic spine Muscle bulk / tone/ strength in the bilateral paraspinal muscles normal Vertebral body tender to palpation Taut bands w twitch response Facet loading test positive Lumbar spine: Motor bulk/ tone/ strength lower extremities , thigh and legs : 5/5 Deep tendon reflexes : Normal Knee Jerk. Normal Ankle Jerk . Vertebral body tenderness to palpation over L3 Hood test +L L L3-L4 Lumbar Facet Loading Test positive L L4-L5, L5-S1 Straight Leg Raise: positive at 30 degrees right side/ left side Gaenslen's Test positive Sacral spine : Severe tenderness over the Sacroiliac joint: right side / left side Range of motion: Flexion of the lumbar spine <60 degrees Range of motion: Extension of the lumbar spine <20 degrees Gaenslen's Test positive Rosi test: positive right side / left side Thigh Thrust Test Sacral Thrust Test Imaging: Thoracic spine MRI non contrast from 10/25/22 reviewed Lumbar spine MRI non contrast from 07/29/23 reviewed Assessment and plan: Chronic LBP secondary to disc bulges, DDD, spondylosis with facet arthropathy without myelopathy Recommendation of L MBB L3-L5#1. May need a series of injections, up until RFA, for optimal pain relief. Risk, benefits of procedure discussed and patient verbalized understanding. Protocol for discontinuation/continuation of medication surrounding procedure discussed. Minimal anesthesia, including Fentanyl and Versed, if clinicallly indicated. Recommendation of medication management. [place] 7.5/325mg #90 w 1 RF. Use, side effects, adverse reactions, safe storage discussed. Opiate/ narcotic agreement signed 09/21/23. All patient questions answered I have spent less than 30 minutes on patient care today. Dr Christianson was available by phone for the evaluation of this patient. The time was used to review the medical records including relevant urine studies and Prescription history (MAPs), review of the available imaging, evaluation and examination of the patient, coordination of care with the medical staff and if applicable referring physicians, as well as creation of the medical record PQRS Narrative: Hx Alcohol Use (MH) Yes: RARELY Home Medications: Ambulatory Orders Baclofen 10 mg PO BID 11/25/21 Cholecalciferol [Vitamin D3 (25 Mcg = 1000 Iu)] 50 mcg PO AC-BRKFST 11/25/21 Gabapentin 600 mg PO DAILY 11/25/21 Multivitamin [Multivitamins Adult Gummies] 1 each PO QAM 11/25/21 Omeprazole 20 mg PO AC-BRKFST 11/25/21 Simvastatin 40 mg PO HS 11/25/21 Terazosin HCl 10 mg PO HS 11/25/21 Losartan/Hydrochlorothiazide [Losartan-Hctz 100-12.5 mg Tab] 1 tab PO QAM 03/16/22 Lidocaine 5% Patch [Lidoderm 5% Patch] 1 patch TOPICAL DAILY PRN 11/24/22 Zinc Gluconate [Zinc] 50 mg PO QAM 11/24/22 Apixaban [Eliquis] 5 mg PO BID #60 tablet 11/25/22 HYDROcodone/APAP 7.5-325MG [[place] 7.5-325] 1 tab PO TID PRN 30 Days #90 tab 09/21/23 HYDROcodone/APAP 7.5-325MG [[place] 7.5-325] 1 tab PO TID PRN 30 Days #90 tab Controlled Substance Measures - Controlled Substance Measures Is patient prescribed a controlled substance at discharge?: Yes When asked, does pt state using other controlled substances?: No If prescribed controlled substance>3 days was MAPS reviewed?: Yes If Rx opioid, was Start Talking consent form obtained?: Yes Was information provided regarding opioid addiction?: Yes
== END ==
LOC: PNWHC3 12:12
PROVIDERS: ATTEND Specialist
DX: M47.817 Spondylosis without myelopathy or radiculopathy, lumbosacral region (principal); M51.37 Other intervertebral disc degeneration, lumbosacral region; M51.27 Other intervertebral disc displacement, lumbosacral region
CPT/HCPCS: 99211

== ENCOUNTER 2023-10-06 12:20 | Day surgery (SDC) | payer OTHER ==
[2023-10-06] MEDS: IV FLUID CONTINUATION 1,000 ML IV ONE (13:32)
[2023-10-06 13:46] VITALS: TEMP 98.3
[2023-10-06] MEDS ORDERED: MIDAZOLAM 2 MG/2 ML VIAL ONE (14:12)
[2023-10-06] MEDS ORDERED: ROPIVACAINE 5MG/ML 20ML VIAL ONE (14:12)
[2023-10-06] MEDS: IV FLUID CONTINUATION 850 ML IV ONE (14:34)
[2023-10-06 14:37] VITALS: RESP 20
--- NOTE | 2023-10-06 14:37 | P.PCN ---
Description of Procedure: Preprocedure diagnosis. 1. Lumbar spondylosis with facet joint arthropathy without myelopathy. 2. Lumbar degenerative disc disease. Postprocedure diagnosis. As above. Procedure done. Left diagnostic block with local anesthetics at L3, L4, L5 medial branch to target the facet joint L4- 5 and L5-S1 with fluoroscopic guidance (fluoroscopy images are available in the radiology department) . Anesthesia. As per anesthesia department/ Moderate sedation with intravenous Versed 2 mg and fentanyl and local infiltration with local anesthetics. In OR, continuous pulse ox, EKG, blood pressure and verbal communication was maintained. Blood loss. Minimal. Indication. The patient has low back pain secondary to lumbar facet joint arthropathy. Discussed the procedure and alternative and complications which includes infection, bleeding, nerve damage, paralysis ,aggravation of pain. Patient understands and all questions were answered. Patient iunderstands that if any pain relief occurs it will last for a few hours to a few days maximum. Procedure description. After getting consent patient was taken in the OR in prone position. Back prepped with chlorhexidine and draped in sterile fashion. After injecting 5 mL of plain 1% lidocaine subcutaneously, a 22-gauge Long spinal needle was introduced under tunnel vision of the fluoroscope at the junction of the superior articular process with left ala of the sacrum. With slight oblique fluoroscope, after injecting 5 mL of plain 1% lidocaine subcutaneously, a 22-gauge spinal needle was introduced under tunnel vision of the fluoroscope at the junction of the superior articular process with left L5 transverse process, junction of the superior articular process with the left L4 transverse process. Negative CSF, negative blood, negative paresthesia. After needle position confirmation by AP and crosstable lateral view, after negative aspiration, half milliliters of solution were injected at each point. Total 1- 1/2 mL of solution was injected on the left side which consists of 0.5% ropivacaine. Spinal needles were taken out and bandages were applied. Disposition. Patient tolerated the procedure well. No complication. Discharged home in stable condition
[2023-10-06 15:09] VITALS: BP 115/73; PULSE 79
--- NOTE | 2023-10-06 19:53 | FL ---
Fluoroscopy INDICATION: Pain FINDINGS: Fluoroscopy time: 34.3 seconds. Total dose area product (DAP) in uGy*m?, mGy*cm? (or similar): 0.4495 Images obtained: 4. IMPRESSION: 1. Documentation of fluoroscopy.
== END 2023-10-06 15:10 | disposition home or self-care (01) ==
LOC: ORPAIN 12:20
PROVIDERS: ATTEND Pain Medicine Interventional Pain Medicine
DX: M47.816 Spondylosis without myelopathy or radiculopathy, lumbar region (principal); M51.36 Other intervertebral disc degeneration, lumbar region; Z79.899 Other long term (current) drug therapy; Z79.01 Long term (current) use of anticoagulants
CPT/HCPCS: 64493; 64494; J2250; J2795; 99152

== ENCOUNTER → 2023-11-14 | Outpatient (CLI) | payer OTHER ==
[2023-11-14 12:42] VITALS: BP 145/84; PULSE 80; RESP 16
--- NOTE | 2023-11-14 14:48 | P.PAINPG ---
PQRS Measure Charge Sheet Comment: A 72 yr old male with a history of severe and chronic LBP > 10 yrs secondary to DDD and spondylosis with facet arthropathy without myelopathy presents today for evaluation s/p L MBB L4-L5/ L5-S1#1. Pt states he experienced 80 % pain relief x 1 day s/p procedure. Pain level is provoked at 6 /10 in intensity, constant, localized in the lumbar spine, predominantly axial, stiff in character w occasional shooting pain L & R of midline. Pain is provoked by standing from a sitting position. Pain is alleviated with PT weekly x 8 wks which ended in Apr 2023, massage therapy every 2-3 wks which he is currently in, chiropractic treatments semi monthly for years w his last visit August 2023, heat, ice, medications, use of a cane for ambulatory assistance, reclining and rest. Oswestry axial pain score of 16. Interventional pain procedures completed include PERNELL C7-T1, T11-T12 x1, PERNELL T3- T4 x1, BL TPIs T1-T10 x1, PERNELL L3-L4 x1 (Jul 2023), L MBB L4-L5/ L5-S1 x1 Patient is currently on [place] (dislikes it), Ibu, Baclofen, Neurontin Patient denies any side effects of the medication(s), denies excessive drowsiness or sleepiness, denies suicidal ideation and reports that the current pain medication is helping to control the pain and improve activities of daily living. Patient denies any motor or sensory deficits. Patient denies any fever or night sweats, denies any change in the bowel movements or urination. Physical Examination: -Constitutional: Cooperative. Not in acute distress . - Neurologic: Cranial nerve II to XII intact. No focal neurological deficits. - Psychatric: Alert & oriented x 3. Matching mood & appropriate affect. Judgment and insight intact. - Musculoskeletal: Cervical spine: Muscle bulk/ tone/ strength in the bilateral upper extremities normal Vertebral body tenderness to palpation over Spurling test positive Distraction test positive Facet loading test positive Thoracic spine Muscle bulk / tone/ strength in the bilateral paraspinal muscles normal Vertebral body tender to palpation Taut bands w twitch response T6-S1 Facet loading test positive Lumbar spine: Motor bulk/ tone/ strength lower extremities , thigh and legs : 5/5 Deep tendon reflexes : Normal Knee Jerk. Normal Ankle Jerk . Vertebral body tenderness to palpation over L3 Hood test +L L L3-L4 Lumbar Facet Loading Test positive L L4-L5, L5-S1 Straight Leg Raise: positive at 30 degrees right side/ left side Gaenslen's Test positive Sacral spine : Severe tenderness over the Sacroiliac joint: right side / left side Range of motion: Flexion of the lumbar spine <60 degrees Range of motion: Extension of the lumbar spine <20 degrees Gaenslen's Test positive Rosi test: positive right side / left side Thigh Thrust Test Sacral Thrust Test Imaging: Thoracic spine MRI non contrast from 10/25/22 reviewed Lumbar spine MRI non contrast from 07/29/23 reviewed Assessment and plan: Chronic LBP secondary to disc bulges, DDD, spondylosis with facet arthropathy without myelopathy Recommendation of BL TPIs T6-S1 #2. Risks, benefits of procedure discussed and pt verbalized understanding. Protocol for discontinuation/ continuation of medications trudy procedure discussed. Recommendation of medication management. Dislikes [place] 7.5/325mg #90 . Use, side effects, adverse reactions, safe storage discussed. Opiate/ narcotic agreement signed 09/21/23. All patient questions answered I have spent less than 30 minutes on patient care today. Dr Christianson was available by phone for the evaluation of this patient. The time was used to review the medical records including relevant urine studies and Prescription history (MAPs), review of the available imaging, evaluation and examination of the patient, coordination of care with the medical staff and if applicable referring physicians, as well as creation of the medical record - Pain Location Bilateral Lower Back Non-Pharmacological Interventions: Ice, Physical Therapy, Position/Reposition Pharmacological Interventions: Block, Epidural, PRN Medication, Scheduled Medication, Topical Medication PQRS Narrative: Hx Alcohol Use (MH) Yes: RARELY Home Medications: Ambulatory Orders Baclofen 10 mg PO BID 11/25/21 Cholecalciferol [Vitamin D3 (25 Mcg = 1000 Iu)] 50 mcg PO AC-BRKFST 11/25/21 Gabapentin 600 mg PO DAILY 11/25/21 Multivitamin [Multivitamins Adult Gummies] 1 each PO QAM 11/25/21 Omeprazole 20 mg PO AC-BRKFST 11/25/21 Simvastatin 40 mg PO HS 11/25/21 Terazosin HCl 10 mg PO HS 11/25/21 Losartan/Hydrochlorothiazide [Losartan-Hctz 100-12.5 mg Tab] 1 tab PO QAM 03/16/22 Lidocaine 5% Patch [Lidoderm 5% Patch] 1 patch TOPICAL DAILY PRN 11/24/22 Zinc Gluconate [Zinc] 50 mg PO QAM 11/24/22 Apixaban [Eliquis] 5 mg PO BID #60 tablet 11/25/22 HYDROcodone/APAP 7.5-325MG [[place] 7.5-325] 1 tab PO TID PRN 30 Days #90 tab 09/21/23 Controlled Substance Measures - Controlled Substance Measures Is patient prescribed a controlled substance at discharge?: No
== END ==
LOC: PNWHC3 12:14
PROVIDERS: ATTEND Specialist
DX: M51.37 Other intervertebral disc degeneration, lumbosacral region (principal); M51.27 Other intervertebral disc displacement, lumbosacral region; M47.817 Spondylosis without myelopathy or radiculopathy, lumbosacral region
CPT/HCPCS: 99211

== ENCOUNTER 2023-11-29 11:58 | Day surgery (SDC) | payer OTHER | END 2023-11-29 15:05 | LOC: ORPAIN 11:58 | PROVIDERS: ATTEND Specialist | DX: M79.18 Myalgia, other site (principal); M54.14 Radiculopathy, thoracic region | CPT/HCPCS: 20553 ==

== ENCOUNTER → 2023-12-21 | Outpatient (CLI) | payer OTHER ==
[2023-12-21 12:34] VITALS: BP 124/80; PULSE 76; RESP 16; TEMP 97.8
--- NOTE | 2023-12-21 15:21 | P.PAINPG ---
PQRS Measure Charge Sheet Comment: A 73 yr old male with a history of severe and chronic LBP > 10 yrs secondary to radiculopathy, spondylosis and facet arthropathy without myelopathy presents today for evaluation s/p BL TPIs T6-S1 #2. Pt states he experienced 50 % pain relief x 3 wks s/p procedure. Pain level is provoked at 5 /10 in intensity, constant, localized in the lumbar spine, predominantly axial, stiff in character w occasional shooting pain L & R of midline. Pain is provoked by standing from a sitting position. Pain is alleviated with PT weekly x 8 wks which ended in Apr 2023, massage therapy every 2-3 wks since Oct 2023 which he is currently in, chiropractic treatments semi monthly for years w his last visit August 2023, heat, ice, medications, use of a cane for ambulatory assistance, reclining and rest. Interventional pain procedures completed include PERNELL C7-T1, T11-T12 x1, PERNELL T3- T4 x1, BL TPIs T1-T10 x1, PERNELL L3-L4 x1 (Jul 2023), L MBB L4-L5/ L5-S1 x1, BL TPIs T6-S1 x2 (Nov 2023) Patient is currently on Ibu, Baclofen, Neurontin Patient denies any side effects of the medication(s), denies excessive drowsiness or sleepiness, denies suicidal ideation and reports that the current pain medication is helping to control the pain and improve activities of daily living. Patient denies any motor or sensory deficits. Patient denies any fever or night sweats, denies any change in the bowel movements or urination. Physical Examination: -Constitutional: Cooperative. Not in acute distress . - Neurologic: Cranial nerve II to XII intact. No focal neurological deficits. - Psychatric: Alert & oriented x 3. Matching mood & appropriate affect. Judgment and insight intact. - Musculoskeletal: Cervical spine: Muscle bulk/ tone/ strength in the bilateral upper extremities normal Vertebral body tenderness to palpation over Spurling test positive Distraction test positive Facet loading test positive Thoracic spine Muscle bulk / tone/ strength in the bilateral paraspinal muscles normal Vertebral body tender to palpation Taut bands w twitch response T6-S1 Facet loading test positive Lumbar spine: Motor bulk/ tone/ strength lower extremities , thigh and legs : 5/5 Deep tendon reflexes : Normal Knee Jerk. Normal Ankle Jerk . Vertebral body tenderness to palpation over L3 Hood test +L L L3-L4 Lumbar Facet Loading Test positive L L4-L5, L5-S1 Straight Leg Raise: positive at 30 degrees right side/ left side Gaenslen's Test positive Sacral spine : Severe tenderness over the Sacroiliac joint: right side / left side Range of motion: Flexion of the lumbar spine <60 degrees Range of motion: Extension of the lumbar spine <20 degrees Gaenslen's Test positive Rosi test: positive right side / left side Thigh Thrust Test Sacral Thrust Test Imaging: Thoracic spine MRI non contrast from 10/25/22 reviewed Lumbar spine MRI non contrast from 07/29/23 reviewed Assessment and plan: Chronic LBP secondary to disc bulges, DDD, spondylosis with facet arthropathy without myelopathy Will manage residual pain and may RTC on an as needed basis. All patient questions answered I have spent less than 30 minutes on patient care today. Dr Christianson was available by phone for the evaluation of this patient. The time was used to review the medical records including relevant urine studies and Prescription history (MAPs), review of the available imaging, evaluation and examination of the patient, coordination of care with the medical staff and if applicable referring physicians, as well as creation of the medical record PQRS Narrative: Hx Alcohol Use (MH) Yes: RARELY Home Medications: Ambulatory Orders Baclofen 10 mg PO BID 11/25/21 Cholecalciferol [Vitamin D3 (25 Mcg = 1000 Iu)] 50 mcg PO AC-BRKT 11/25/21 Gabapentin 600 mg PO DAILY 11/25/21 Multivitamin [Multivitamins Adult Gummies] 1 each PO M 11/25/21 Omeprazole 20 mg PO -BRKT 11/25/21 Simvastatin 40 mg PO HS 11/25/21 Terazosin HCl 10 mg PO HS 11/25/21 Losartan/Hydrochlorothiazide [Losartan-Hctz 100-12.5 mg Tab] 1 tab PO QAM 03/16/22 Lidocaine 5% Patch [Lidoderm 5% Patch] 1 patch TOPICAL DAILY PRN 11/24/22 Zinc Gluconate [Zinc] 50 mg PO QAM 11/24/22 Apixaban [Eliquis] 5 mg PO BID #60 tablet 11/25/22 HYDROcodone/APAP 7.5-325MG [[place] 7.5-325] 1 tab PO TID PRN 30 Days #90 tab 09/21/23 Controlled Substance Measures - Controlled Substance Measures Is patient prescribed a controlled substance at discharge?: No
== END ==
LOC: PNWHC3 11:41
PROVIDERS: ATTEND Specialist
DX: M47.814 Spondylosis without myelopathy or radiculopathy, thoracic region
CPT/HCPCS: 99211

== ENCOUNTER → 2024-02-22 | Outpatient (CLI) | payer OTHER ==
[2024-02-22 12:29] VITALS: BP 150/73; PULSE 81; RESP 16; TEMP 97.5
--- NOTE | 2024-02-22 15:17 | P.PAINPG ---
Objective - Vital Signs Vital signs: Vital Signs Temp 97.5 F L 02/22/24 12:26 Pulse 81 02/22/24 12:26 Resp 16 02/22/24 12:26 BP 150/73 02/22/24 12:26 Pulse Ox 94 L 02/22/24 12:26 FiO2 Intake & Output 02/21/24 02/22/24 02/22/24 18:59 06:59 18:59 Weight 149.685 kg PQRS Measure Charge Sheet Mode of Arrival: Ambulatory Comment: A 73 yr old male with a history of severe and chronic thoracolumbar pain > 10 yrs secondary to radiculopathy, spondylosis and facet arthropathy without myelopathy presents today for evaluation. Pain level is provoked at 6 /10 in intensity, constant, localized in the thoracolumbar spine, predominantly axial, stiff in character w occasional shooting pain L > R of midline. Pain is provoked by any movements. Pain is alleviated with PT weekly x 8 wks which ended in Apr 2023, massage therapy every 2-3 wks since Oct 2023 which he is currently in, chiropractic treatments semi monthly for years w his last visit August 2023, heat, ice, medications, use of a cane for ambulatory assistance, reclining and rest. Interventional pain procedures completed include PERNELL C7-T1, T11-T12 x1, PERNELL T3- T4 x1, BL TPIs T1-T10 x1, PERNELL L3-L4 x1 (Jul 2023), L MBB L4-L5/ L5-S1 x1, BL TPIs T6-S1 x2 (Nov 2023) Patient is currently on Ibu, Baclofen, Neurontin Patient denies any side effects of the medication(s), denies excessive drowsiness or sleepiness, denies suicidal ideation and reports that the current pain medication is helping to control the pain and improve activities of daily living. Patient denies any motor or sensory deficits. Patient denies any fever or night sweats, denies any change in the bowel movements or urination. Physical Examination: -Constitutional: Cooperative. Not in acute distress . - Neurologic: Cranial nerve II to XII intact. No focal neurological deficits. - Psychatric: Alert & oriented x 3. Matching mood & appropriate affect. Judgment and insight intact. - Musculoskeletal: Cervical spine: Muscle bulk/ tone/ strength in the bilateral upper extremities normal Vertebral body tenderness to palpation over Spurling test positive Distraction test positive Facet loading test positive Thoracic spine Muscle bulk / tone/ strength in the bilateral paraspinal muscles normal Vertebral body tender to palpation Taut bands w twitch response T8-S1 BL Facet loading test positive Lumbar spine: Motor bulk/ tone/ strength lower extremities , thigh and legs : 5/5 Deep tendon reflexes : Normal Knee Jerk. Normal Ankle Jerk . Vertebral body tenderness to palpation over L3 Hood test +L L L3-L4 Lumbar Facet Loading Test positive L L4-L5, L5-S1 Taut bands w twitch response over L1-S1 BL Straight Leg Raise: positive at 30 degrees right side/ left side Gaenslen's Test positive Sacral spine : Severe tenderness over the Sacroiliac joint: right side / left side Range of motion: Flexion of the lumbar spine <60 degrees Range of motion: Extension of the lumbar spine <20 degrees Gaenslen's Test positive Rosi test: positive right side / left side Thigh Thrust Test Sacral Thrust Test Imaging: Thoracic spine MRI non contrast from 10/25/22 reviewed Lumbar spine MRI non contrast from 07/29/23 reviewed Assessment and plan: Chronic LBP secondary to disc bulges, radiculopathy, spondylosis with facet arthropathy without myelopathy Recommendation of BL TPIs T8-S1 #2. Risks, benefits of procedure discussed and pt verbalized understanding. All patient questions answered I have spent less than 30 minutes on patient care today. Dr Christianson was available by phone for the evaluation of this patient. The time was used to review the medical records including relevant urine studies and Prescription history (MAPs), review of the available imaging, evaluation and examination of the patient, coordination of care with the medical staff and if applicable referring physicians, as well as creation of the medical record - Pain Location Bilateral Lower Back Non-Pharmacological Interventions: Chiropractic Treatment, Heat, Ice, Inactivity, Massage, Physical Therapy, Position/Reposition, Sitting Pharmacological Interventions: Block, Epidural, PRN Medication, Scheduled Medication PQRS Narrative: Blood Pressure 150/73 Pain Intensity [Bilateral 6 Lower Back] Scale Used Numeric (1 - 10) Hx Alcohol Use (MH) Yes: RARELY Home Medications: Ambulatory Orders Baclofen 10 mg PO BID 11/25/21 Cholecalciferol [Vitamin D3 (25 Mcg = 1000 Iu)] 50 mcg PO AC-BRKFST 11/25/21 Gabapentin 600 mg PO DAILY 11/25/21 Multivitamin [Multivitamins Adult Gummies] 1 each PO QAM 11/25/21 Omeprazole 20 mg PO AC-BRKFST 11/25/21 Simvastatin 40 mg PO HS 11/25/21 Terazosin HCl 10 mg PO HS 11/25/21 Losartan/Hydrochlorothiazide [Losartan-Hctz 100-12.5 mg Tab] 1 tab PO QAM 03/16/22 Lidocaine 5% Patch [Lidoderm 5% Patch] 1 patch TOPICAL DAILY PRN 11/24/22 Zinc Gluconate [Zinc] 50 mg PO QAM 11/24/22 Apixaban [Eliquis] 5 mg PO BID #60 tablet 11/25/22 HYDROcodone/APAP 7.5-325MG [[place] 7.5-325] 1 tab PO TID PRN 30 Days #90 tab 09/21/23 Controlled Substance Measures - Controlled Substance Measures Is patient prescribed a controlled substance at discharge?: No
== END ==
LOC: PNWHC3 11:36
PROVIDERS: ATTEND Specialist
DX: M47.26 Other spondylosis with radiculopathy, lumbar region (principal); M51.16 Intervertebral disc disorders with radiculopathy, lumbar region
CPT/HCPCS: 99211

== ENCOUNTER 2024-03-27 10:30 | Day surgery (SDC) | payer OTHER ==
[2024-03-23 15:08] VITALS: BMI 53.2
[2024-03-27] MEDS ORDERED: LACTATED RINGERS 1,000 ML IV SCH (12:04)
[2024-03-27 12:14] VITALS: TEMP 98.6
[2024-03-27] MEDS ORDERED: ROPIVACAINE 5MG/ML 20ML VIAL ONE (12:51)
[2024-03-27] MEDS ORDERED: methylPREDNISolone ACETATE 40 MG/ML 1 ML VIAL ONE (12:51)
--- NOTE | 2024-03-27 13:04 | P.PCN ---
Description of Procedure: Preprocedure diagnosis. Myofascial pain. Myofascial trigger point. Postprocedure diagnosis. As above. Procedure done. Myofascial trigger point injection with local anesthetics and steroid at T8-S1 bilateral total 10 points. Anesthesia. Ethyl chloride spray. Local anesthetic infiltration. In the OR continuous pulse ox, EKG, blood pressure, and verbal communication was maintained with the patient. Blood loss. None. Indication. Discussed with the patient procedure, alternatives and possible complications which may include infection, bleeding, nerve damage, aggravation of pain. Patient understands and all questions were answered. Procedure note. After getting consent patient in the procedure area. Most tender points were identified and marked. A 25-gauge needle attached to syringe was introduced at the trigger points and after negative aspiration 3 mL solution are injected at each trigger point. I injected 10 trigger points in bilateral lumber and thoracic paraspinal muscles, 10 trigger points in bilateral paraspinal muscle . Total solution consists of 30 ml 0.5%Ropivacaine mixed with 80 mg Depomedrol. Disposition. Patient tolerated the procedure well. No complication. Discharged home in stable condition.
[2024-03-27 13:17] VITALS: PULSE 71; RESP 16
[2024-03-27 13:19] VITALS: BP 138/78
== END 2024-03-27 13:40 | disposition home or self-care (01) ==
LOC: ORPAIN 10:30
PROVIDERS: ATTEND Pain Medicine Interventional Pain Medicine
DX: M79.18 Myalgia, other site (principal)
CPT/HCPCS: 20553; J2795; J1010

== ENCOUNTER → 2024-04-23 | Outpatient (CLI) | payer OTHER ==
[2024-04-23 13:28] VITALS: BP 165/78; PULSE 77; RESP 16; TEMP 97.9
--- NOTE | 2024-04-23 17:19 | P.PAINPG ---
PQRS Measure Charge Sheet Comment: A 73 yr old male with a history of severe and chronic thoracolumbar pain > 10 yrs secondary to radiculopathy, spondylosis and facet arthropathy without myelopathy presents today for evaluation s/p BL TPIs T8-S1 #2. Pt states he experienced 70 % pain relief x 3-4 wks s/p procedure. Pain level is provoked at 6-7 /10 in intensity, constant, localized in the thoracolumbar spine, predominantly axial, stiff in character w occasional shooting pain L > R of midline. Pain is provoked by any movements. Pain is alleviated with PT weekly x 8 wks which ended in Apr 2023, massage therapy every 2-3 wks since Oct 2023 which he is currently in, chiropractic treatments semi monthly for years w his last visit August 2023, heat, ice, medications, use of a cane for ambulatory assistance, reclining and rest. Interventional pain procedures completed include PERNELL C7-T1, T11-T12 x1, PERENLL T3- T4 x1, BL TPIs T1-T10 x1, PERNELL L3-L4 x1 (Jul 2023), L MBB L4-L5/ L5-S1 x1, BL TPIs T6-S1 x3 (12/09, 04/10) Patient is currently on Tyl, Ibu, Baclofen, Neurontin Patient denies any side effects of the medication(s), denies excessive dr owsiness or sleepiness, denies suicidal ideation and reports that the current pain medication is helping to control the pain and improve activities of daily living. Patient denies any motor or sensory deficits. Patient denies any fever or night sweats, denies any change in the bowel movements or urination. Physical Examination: -Constitutional: Cooperative. Not in acute distress . - Neurologic: Cranial nerve II to XII intact. No focal neurological deficits. - Psychatric: Alert & oriented x 3. Matching mood & appropriate affect. Judgment and insight intact. - Musculoskeletal: Cervical spine: Muscle bulk/ tone/ strength in the bilateral upper extremities normal Vertebral body tenderness to palpation over Spurling test positive Distraction test positive Facet loading test positive Thoracic spine Muscle bulk / tone/ strength in the bilateral paraspinal muscles normal Vertebral body tender to palpation Taut bands w twitch response T8-T12 BL Facet loading test positive Lumbar spine: Motor bulk/ tone/ strength lower extremities , thigh and legs : 5/5 Deep tendon reflexes : Normal Knee Jerk. Normal Ankle Jerk . Vertebral body tenderness to palpation over L3 Hood test +L L L3-L4 Lumbar Facet Loading Test positive L L4-L5, L5-S1 Taut bands w twitch response over L1-S1 BL Straight Leg Raise: positive at 30 degrees right side/ left side Gaenslen's Test positive Sacral spine : Severe tenderness over the Sacroiliac joint: right side / left side Range of motion: Flexion of the lumbar spine <60 degrees Range of motion: Extension of the lumbar spine <20 degrees Gaenslen's Test positive Rosi test: positive right side / left side Thigh Thrust Test Sacral Thrust Test Imaging: Thoracic spine MRI non contrast from 10/25/22 reviewed Lumbar spine MRI non contrast from 07/29/23 reviewed Assessment and plan: Chronic LBP secondary to disc bulges, radiculopathy, spondylosis with facet arthropathy without myelopathy Recommendation of BL TPIs T8-S1 #3. Risks, benefits of procedure discussed and pt verbalized understanding. All patient questions answered I have spent less than 30 minutes on patient care today. Dr Christianson was available by phone for the evaluation of this patient. The time was used to review the medical records including relevant urine studies and Prescription history (MAPs), review of the available imaging, evaluation and examination of the patient, coordination of care with the medical staff and if applicable referring physicians, as well as creation of the medical record PQRS Narrative: Hx Alcohol Use (MH) Yes: RARELY Home Medications: Ambulatory Orders Cholecalciferol [Vitamin D3 (25 Mcg = 1000 Iu)] 50 mcg PO AC-BRKFST 11/25/21 Gabapentin 600 mg PO DAILY 11/25/21 Multivitamin [Multivitamins Adult Gummies] 1 each PO QAM 11/25/21 Omeprazole 20 mg PO AC-BRKFST 11/25/21 Simvastatin 40 mg PO HS 11/25/21 Terazosin HCl 10 mg PO HS 11/25/21 Losartan/Hydrochlorothiazide [Losartan-Hctz 100-12.5 mg Tab] 1 tab PO QAM 03/16/22 Lidocaine 5% Patch [Lidoderm 5% Patch] 1 patch TOPICAL DAILY PRN 11/24/22 Zinc Gluconate [Zinc] 50 mg PO QAM 11/24/22 Apixaban [Eliquis] 5 mg PO BID #60 tablet 11/25/22 Controlled Substance Measures - Controlled Substance Measures Is patient prescribed a controlled substance at discharge?: No
== END ==
LOC: PNWHC3 11:27
PROVIDERS: ATTEND Specialist
DX: M51.17 Intervertebral disc disorders with radiculopathy, lumbosacral region (principal); G89.29 Other chronic pain
CPT/HCPCS: 99211

== ENCOUNTER → 2024-06-13 | Outpatient (CLI) | payer OTHER ==
[2024-06-13 12:42] VITALS: BP 147/77; PULSE 97; RESP 16; TEMP 97.3
--- NOTE | 2024-06-13 14:35 | P.PAINPG ---
PQRS Measure Charge Sheet Comment: A 73 yr old male with a history of severe and chronic thoracolumbar pain > 10 yrs secondary to radiculopathy, spondylosis and facet arthropathy without myelopathy presents today for evaluation s/p BL TPIs T8-S1 #3. Pt states he experienced 60 % pain relief x 2 wks s/p procedure. Pain level is provoked at 5 /10 in intensity, constant, localized in the thoracolumbar spine, predominantly axial, stiff in character w occasional shooting pain L > R of midline. Pain is provoked by any movements. Pain is alleviated with PT weekly x 8 wks which ended in Apr 2023, massage therapy every 2-3 wks since Oct 2023 which he is currently in, chiropractic treatments semi monthly for years w his last visit August 2023, he at, ice, medications, use of a cane for ambulatory assistance, reclining and rest. Interventional pain procedures completed include PERNELL C7-T1, T11-T12 x1, PERNELL T3- T4 x1, BL TPIs T1-T10 x1, PERNELL L3-L4 x1 (Jul 2023), L MBB L4-L5/ L5-S1 x1, BL TPIs T6-S1 x3 (12/09, 04/10, 06/12) Patient is currently on Tyl, Ibu, Baclofen, Neurontin Patient denies any side effects of the medication(s), denies excessive drowsiness or sleepiness, denies suicidal ideation and reports that the current pain medication is helping to control the pain and improve activities of daily living. Patient denies any motor or sensory deficits. Patient denies any fever or night sweats, denies any change in the bowel movements or urination. Physical Examination: -Constitutional: Cooperative. Not in acute distress . - Neurologic: Cranial nerve II to XII intact. No focal neurological deficits. - Psychatric: Alert & oriented x 3. Matching mood & appropriate affect. Judgment and insight intact. - Musculoskeletal: Cervical spine: Muscle bulk/ tone/ strength in the bilateral upper extremities normal Vertebral body tenderness to palpation over Spurling test positive Distraction test positive Facet loading test positive Thoracic spine Muscle bulk / tone/ strength in the bilateral paraspinal muscles normal Vertebral body tender to palpation Taut bands w twitch response T8-T12 BL Facet loading test positive Lumbar spine: Motor bulk/ tone/ strength lower extremities , thigh and legs : 5/5 Deep tendon reflexes : Normal Knee Jerk. Normal Ankle Jerk . Vertebral body tenderness to palpation over L3 Hood test +L L L3-L4 Lumbar Facet Loading Test positive L L4-L5, L5-S1 Taut bands w twitch response over L1-S1 BL Straight Leg Raise: positive at 30 degrees right side/ left side Gaenslen's Test positive Sacral spine : Severe tenderness over the Sacroiliac joint: right side / left side Range of motion: Flexion of the lumbar spine <60 degrees Range of motion: Extension of the lumbar spine <20 degrees Gaenslen's Test positive Rosi test: positive right side / left side Thigh Thrust Test Sacral Thrust Test Imaging: Thoracic spine MRI non contrast from 10/25/22 reviewed Lumbar spine MRI non contrast from 07/29/23 reviewed Assessment and plan: Chronic LBP secondary to disc bulges, radiculopathy, spondylosis with facet arthropathy without myelopathy Will manage residual pain and may RTC on an as needed basis. All patient questions answered I have spent less than 30 minutes on patient care today. Dr Christianson was available by phone for the evaluation of this patient. The time was used to review the medical records including relevant urine studies and Prescription history (MAPs), review of the available imaging, evaluation and examination of the patient, coordination of care with the medical staff and if applicable referring physicians, as well as creation of the medical record PQRS Narrative: Hx Alcohol Use (MH) Yes: RARELY Home Medications: Ambulatory Orders Cholecalciferol [Vitamin D3 (25 Mcg = 1000 Iu)] 50 mcg PO AC-BRKFST 11/25/21 Gabapentin 600 mg PO DAILY 11/25/21 Multivitamin [Multivitamins Adult Gummies] 1 each PO QAM 11/25/21 Omeprazole 20 mg PO AC-BRKFST 11/25/21 Simvastatin 40 mg PO HS 11/25/21 Terazosin HCl 10 mg PO HS 11/25/21 Losartan/Hydrochlorothiazide [Losartan-Hctz 100-12.5 mg Tab] 1 tab PO QAM 03/16/22 Lidocaine 5% Patch [Lidoderm 5% Patch] 1 patch TOPICAL DAILY PRN 11/24/22 Zinc Gluconate [Zinc] 50 mg PO QAM 11/24/22 Apixaban [Eliquis] 5 mg PO BID #60 tablet 08/10/23 Controlled Substance Measures - Controlled Substance Measures Is patient prescribed a controlled substance at discharge?: No
== END ==
LOC: PNWHC3 12:16
PROVIDERS: ATTEND Specialist
DX: M47.26 Other spondylosis with radiculopathy, lumbar region (principal); M51.26 Other intervertebral disc displacement, lumbar region; G89.29 Other chronic pain
CPT/HCPCS: 99211